=== PATIENT | female | born 1950 | race Caucasian/White ===

== ENCOUNTER 2020-12-26 10:18 | Outpatient (REF) | payer MEDICARE, SELFPAY ==
[2020-12-26 10:21] LABS: MANUAL DIFF FLAG NO
[2020-12-26 10:53] LABS: Basophils Absolute Auto 0.1 X10*3/uL (0.0-0.2); Basophils Percent Auto 1.4 % (0-2); Eosinophils Absolute Auto 0.3 X10*3/uL (0.0-0.4); Eosinophils Percent Auto 3.6 % (0-4); Hemoglobin 13.9 g/dl (12.0-16.0); Imm Gran Abs Auto 0.02 X10*3/uL (0.00-0.03); Imm Gran Pct Auto 0.3 % (0.0-0.4); Lymphocytes Absolute Auto 2.4 X10*3/uL (1.2-4.9); Lymphocytes Percent Auto 31.2 % (20-40); Mean Corpuscular HGB Conc 31.6 g/dl (31.0-35.0); Mean Corpuscular Hemoglobin 31.4 pg (27.0-33.0); Mean Corpuscular Volume 99.5 fL (80-98); Mean Platelet Volume 10.9 fL (9.4-12.3); Monocytes Absolute Auto 0.7 X10*3/uL (0.1-1.2); Monocytes Percent Auto 9.3 % (2-11); Neutrophils Absolute Auto 4.2 X10*3/uL (2.0-8.3); Neutrophils Percent Auto 54.2 % (45-73); Platelet Count 344 X10*3/uL (160-400); Red Blood Count 4.42 X10*6/uL (4.20-5.50); Red Cell Distribution Width 12.7 % (11.0-16.0); White Blood Count 7.7 X10*3/uL (4.8-10.8)
[2020-12-26 11:02] LABS: Glucose Urine UA NEG (NEG); Leukocyte Esterase Urine NEG (NEG); Nitrite Urine NEG (NEG); PH 5.5 (5.0-8.0); Specific Gravity - Urine 1.025 (1.005-1.025); Urine Blood NEG (NEG); Urine Ketones NEG (NEG); Urine Protein NEG (NEG-TRACE)
[2020-12-26 11:04] LABS: Appearance Urine HAZY; Color Urine YELLOW
[2020-12-26 11:30] LABS: Alanine Aminotransferase 21 U/L (0-31); Albumin Level 4.1 g/dL (3.5-5.0); Alkaline Phosphatase 89 U/L (39-117); Anion Gap 14 (12-20); Aspartate Amino Transferase 21 U/L (5-31); Bilirubin Total 0.6 mg/dL (0.0-1.0); Blood Urea Nitrogen 27 mg/dL (9-16); Calcium 9.1 mg/dL (8.4-10.2); Carbon Dioxide 23 mmol/L (22-29); Chloride 111 mmol/L (96-108); Cholesterol 202 mg/dL; Estimated Glomerular Filt Rate 59; Glucose Fasting 113 mg/dL (60-99); HDL Cholesterol 55 mg/dL; LDL Cholesterol Calculated 123 mg/dl; Potassium 4.1 mmol/L (3.3-5.1); Sodium 144 mmol/L (135-145); Triglycerides 123 mg/dL
[2020-12-26 11:57] LABS: TSH reflex Free T4 1.57 uIU/mL (0.32-4.0); Vitamin D 25-OH Total 30.8 ng/mL (>30)
== END 2020-12-26 10:19 | disposition home or self-care (01) ==
LOC: HO.LNP 10:18
PROVIDERS: Visit Provider Internal Medicine
DX: Z00.00 Encounter for general adult medical examination without abnormal findings (principal); E04.1 Nontoxic single thyroid nodule; E55.9 Vitamin D deficiency, unspecified; M81.0 Age-related osteoporosis without current pathological fracture; E78.00 Pure hypercholesterolemia, unspecified
CPT/HCPCS: 80053; 80061; 81003; 82306; 84443; 85025

== ENCOUNTER 2021-03-12 10:31 | Outpatient (REF) | payer MEDICARE, SELFPAY ==
[2021-03-12 11:26] LABS: Blood Urea Nitrogen 25 mg/dL (9-16); Estimated Glomerular Filt Rate > 60
== END 2021-03-12 10:32 | disposition home or self-care (01) ==
LOC: HO.LNP 10:31
PROVIDERS: Visit Provider Internal Medicine
DX: R79.9 Abnormal finding of blood chemistry, unspecified (principal)
CPT/HCPCS: 82565; 84520

== ENCOUNTER 2021-05-07 10:11 | Outpatient (REF) | payer MEDICARE, SELFPAY ==
[2021-05-07 10:16] LABS: MANUAL DIFF FLAG NO
[2021-05-07 10:54] LABS: Basophils Absolute Auto 0.1 X10*3/uL (0.0-0.2); Basophils Percent Auto 1.2 % (0-2); Eosinophils Absolute Auto 0.3 X10*3/uL (0.0-0.4); Eosinophils Percent Auto 2.9 % (0-4); Hematocrit 44.3 % (37.0-47.0); Imm Gran Abs Auto 0.03 X10*3/uL (0.00-0.03); Imm Gran Pct Auto 0.3 % (0.0-0.4); Lymphocytes Absolute Auto 2.4 X10*3/uL (1.2-4.9); Lymphocytes Percent Auto 26.9 % (20-40); Mean Corpuscular HGB Conc 31.6 g/dl (31.0-35.0); Mean Corpuscular Hemoglobin 31.3 pg (27.0-33.0); Mean Corpuscular Volume 98.9 fL (80.0-98.0); Mean Platelet Volume 10.3 fL (9.4-12.3); Monocytes Absolute Auto 0.8 X10*3/uL (0.1-1.2); Monocytes Percent Auto 9.2 % (2-11); Neutrophils Absolute Auto 5.3 x10*3/uL (2.0-8.3); Neutrophils Percent Auto 59.5 % (45-73); Platelet Count 368 X10*3/uL (160-400); Red Blood Count 4.48 X10*6/uL (4.20-5.50); Red Cell Distribution Width 12.7 % (11.0-16.0); White Blood Count 8.9 X10*3/uL (4.8-10.8)
[2021-05-07 10:58] LABS: Appearance Urine CLEAR; Color Urine YELLOW; Glucose Urine UA NEG (NEG); Leukocyte Esterase Urine NEG (NEG); Nitrite Urine NEG (NEG); PH 5.5 (5.0-8.0); Specific Gravity - Urine >= 1.030 (1.005-1.025); Urine Blood NEG (NEG); Urine Ketones NEG (NEG); Urine Protein NEG (NEG-TRACE)
[2021-05-07 11:15] LABS: Alanine Aminotransferase 13 U/L (0-31); Alkaline Phosphatase 86 U/L (39-117); Anion Gap 14 (12-20); Aspartate Amino Transferase 13 U/L (5-31); Bilirubin Total 0.4 mg/dL (0.0-1.0); Blood Urea Nitrogen 16 mg/dL (9-16); Calcium 9.5 mg/dL (8.4-10.2); Carbon Dioxide 27 mmol/L (22-29); Chloride 108 mmol/L (96-108); Cholesterol 218 mg/dL; Estimated Glomerular Filt Rate > 60; Glucose Fasting 117 mg/dL (60-99); HDL Cholesterol 59 mg/dL; LDL Cholesterol Calculated 123 mg/dl; Sodium 145 mmol/L (135-145); Total Protein 6.9 g/dL (6.5-8.0); Triglycerides 184 mg/dL
[2021-05-07 11:24] LABS: TSH reflex Free T4 1.84 uIU/mL (0.32-4.0); Vitamin D 25-OH Total 20.6 ng/mL (>30)
== END 2021-05-07 10:12 | disposition home or self-care (01) ==
LOC: HO.LNP 10:11
PROVIDERS: Visit Provider Internal Medicine
DX: E04.1 Nontoxic single thyroid nodule (principal); E78.00 Pure hypercholesterolemia, unspecified; E55.9 Vitamin D deficiency, unspecified
CPT/HCPCS: 80053; 80061; 81003; 82306; 84443; 85025

== ENCOUNTER 2021-07-06 15:47 | Outpatient (REF) | payer MEDICARE, SELFPAY ==
--- NOTE | ~2021-07-06 | US_ITS ---
EXAMINATION: US THYROID CLINICAL INFORMATION: Thyroid nodule. COMPARISON: Ultrasound soft tissue head/neck thyroid dated 12/09/2019. TECHNIQUE: Linear transducer grayscale and color Doppler examination with attention to the region of the thyroid. FINDINGS: SIZE: Measurements of the thyroid lobes and nodules are given in sagittal, anteroposterior and transverse dimensions respectively. Right Thyroid Lobe: 5.3 x 2.0 x 2.0 cm, volume 11.1 mL. Previously 4.3 x 1.9 x 1.9 cm, volume 8.1 mL. Parenchyma: The gland echotexture is heterogeneous. Thyroid vascularity is normal. Left Thyroid Lobe: 5.2 x 1.7 x 2.0 cm, volume 9.3 mL. Previously 4.9 x 1.7 x 1.9 cm, volume 8.2 mL. Parenchyma: The gland echotexture is heterogeneous. Thyroid vascularity is normal. Isthmus: 0.5 cm in maximum AP dimension. Previously 0.4 cm. Estimated total number of nodules greater than or equal to 1 cm: 2. Cans [employer] nodules are described as follows: 1. Location: Right mid. Size: 1.4 x 1.4 x 1.6 cm, volume 1.6 mL. Previously: 1.4 x 1.0 x 1.1 cm, volume 0.8 mL. Nodule characteristics: Composition: Solid (2). Echogenicity: Isoechoic (1). Shape: Not taller than wide (0). Margins: Ill-defined (0). Echogenic Foci: None (0). ACR TI-RADS total points: 3 ACR TI-RADS category: 3 Significant change in size (>/= 20% in 2 dimensions and minimal increase of 2 mm or 50% or greater increase in volume): Change in features: Change in ACR TI-RADS risk category: 2. Location: Left superior. Size: 0.5 x 0.4 x 0.5 cm, volume 0.05 mL. Previously: Not seen on the prior study. Nodule characteristics: Composition: Cystic(0). ACR TI-RADS total points: 0 ACR TI-RADS category: 1 3. Location: Left mid. Size: 0.6 x 0.4 x 0.4 cm, volume 0.05 mL. Previously: 0.5 x 0.3 x 0.4 cm, volume 0.03 mL. Nodule characteristics: Composition: Spongiform (0). Echogenicity: Anechoic (0). Shape: Not taller than wide (0). Margins: Smooth (0). Echogenic Foci: None (0). ACR TI-RADS total points: 0 ACR TI-RADS category: 1 Significant change in size (>/= 20% in 2 dimensions and minimal increase of 2 mm or 50% or greater increase in volume): Change in features: Change in ACR TI-RADS risk category: 4. Location: Left mid. Size: 1.2 x 0.9 x 1.1 cm, volume 0.7 mL. Previously: 0.7 x 0.7 x 0.6 cm, volume 0.2 mL. Nodule characteristics: Composition: Solid (2). Echogenicity: Isoechoic (1). Shape: Not taller than wide (0). Margins: Smooth (0). Echogenic Foci: None (0). ACR TI-RADS total points: 3 ACR TI-RADS category: 3 Significant change in size (>/= 20% in 2 dimensions and minimal increase of 2 mm or 50% or greater increase in volume): Difference in measurement may be due to differences in interobserver variation of nodule margins. Change in features: Change in ACR TI-RADS risk category: NODES: No lymphadenopathy is seen in the tissue surrounding the thyroid gland. US/US thyroid IMPRESSION: Slightly enlarged heterogeneous thyroid gland. Newly appreciated small left thyroid nodule. Question increase in size in the dominant nodule in the mid left lobe. Difference in measurement may be due to differences in interobserver variation of nodule margins. ACR TI-RADS RECOMMENDATION REFERENCE: Ultrasound-guided fine-needle aspiration, followup ultrasound, no further follow up. * TR1 (0 point) and TR 2 (2 points): No FNA or follow up * TR3 (3 points): FNA if more than or equal to 2.5 cm in maximum dimension, followup ultrasound in 1, 3 and 5 years if 1.5 to 2.4 cm in maximum dimension. * TR4 (4-6 points): FNA if more than or equal to 1.5 cm in maximum dimension, followup ultrasound in 1, 2, 3 and 5 years if 1 to 1.4 cm in maximum dimension. * TR5 (more than or equal to 7 points): FNA if more than or equal to 1 cm in maximum dimension, followup ultrasound every year for 5 years if 0.5 to 0.9 cm in maximum dimension. * TR3, TR4 or TR5 nodules that are below the size threshold for follow up receive no follow up.
== END 2021-07-06 15:48 | disposition home or self-care (01) ==
LOC: HO.US 15:47
PROVIDERS: PCP Internal Medicine; Visit Provider Internal Medicine
DX: E04.0 Nontoxic diffuse goiter (principal)
CPT/HCPCS: 76536

== ENCOUNTER 2022-03-01 16:33 | Emergency (ER) | payer OTHER, MEDICARE, SELFPAY ==
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
[2022-03-01 16:40] VITALS: BP 166/99; BP 172/82; PULSE 106; PULSE 114; RESP 18; TEMP 36.7; O2SAT 95; O2SAT 98; BMI 43.4
[2022-03-01 16:44] VITALS: BP 166/99; PULSE 105; RESP 19; O2SAT 95
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
--- NOTE | 2022-03-01 16:47 | ECG_ITS ---
Test Reason : CP Blood Pressure : / mmHG Vent. Rate : 101 BPM Atrial Rate : 101 BPM P-R Int : 170 ms QRS Dur : 090 ms QT Int : 334 ms P-R-T Axes : 039 -11 000 degrees QTc Int : 433 ms Sinus tachycardia Minimal voltage criteria for LVH, may be normal variant ( R in aVL ) Intra-ventricular conduction delay Left axis deviation Abnormal ECG When compared with ECG of 19-APR-2019 19:03, No significant changes seen Referred By: Kandice Stock Electronically Signed By:CONCETTA MEADE MD
[2022-03-01] MEDS: Acetaminophen 325 MG TABLET 975 MG PO (16:57)
--- OUTSIDE RECORDS SUMMARY | 2022-03-01 18:50 | XMS_ITS | Continuity of Care Document ---
:1950 Author Organization [facility] [place] Address [address] [facility], [address] [address]- Care Team Providers Name Role Phone Breana Krishnamurthy NP Primary Care Physician Encounter 01/20/20 - 01/27/20 [facility] [address], [address] [place] [id number]- [facility] Attending Physician: Breana Krishnamurthy NP Admitting Physician: Breana Krishnamurthy NP Referring Physician: Breana Krishnamurthy NP
--- OUTSIDE RECORDS SUMMARY | 2022-03-01 18:50 | XMS_ITS | Continuity of Care Document ---
:1950 Author Organization [facility] [place] Address [address] [place] [address], [address] [address]- Care Team Providers Name Role Phone Yessy BAE, Breana Castellanos Primary Care Physician Encounter 05/24/21 - 05/31/21 [facility] [address], [address] [address]- Attending Physician: Iron Slater MD Admitting Physician: Iron Slatre MD Referring Physician: Iron Slater MD
[2022-03-01 19:51] VITALS: BP 152/76; PULSE 85; RESP 18; TEMP 36.4; O2SAT 96
[2022-03-01 19:58] LABS: MANUAL DIFF FLAG NO
[2022-03-01 20:00] LABS: Basophils Absolute Auto 0.1 X10*3/uL (0.0-0.2); Eosinophils Absolute Auto 0.2 X10*3/uL (0.0-0.4); Eosinophils Percent Auto 1.8 % (0-4); Hematocrit 42.4 % (37.0-47.0); Hemoglobin 13.8 g/dl (12.0-16.0); Imm Gran Abs Auto 0.04 X10*3/uL (0.00-0.03); Imm Gran Pct Auto 0.4 % (0.0-0.4); Lymphocytes Absolute Auto 2.3 X10*3/uL (1.2-4.9); Lymphocytes Percent Auto 21.1 % (20-40); Mean Corpuscular HGB Conc 32.5 g/dl (31.0-35.0); Mean Corpuscular Hemoglobin 31.5 pg (27.0-33.0); Mean Corpuscular Volume 96.8 fL (80.0-98.0); Mean Platelet Volume 9.7 fL (9.4-12.3); Monocytes Absolute Auto 0.9 X10*3/uL (0.1-1.2); Monocytes Percent Auto 8.2 % (2-11); Neutrophils Absolute Auto 7.4 x10*3/uL (2.0-8.3); Neutrophils Percent Auto 67.5 % (45-73); Platelet Count 352 X10*3/uL (160-400); Red Blood Count 4.38 X10*6/uL (4.20-5.50); Red Cell Distribution Width 12.7 % (11.0-16.0)
[2022-03-01 20:05] LABS: INTERNATIONAL NORM RATIO 0.9 (0.9-1.1); Prothrombin Time 10.6 SEC (10.0-13.1)
[2022-03-01 20:07] LABS: Partial Thromboplastin Time 30.1 SEC (26.0-36.4)
[2022-03-01 20:17] LABS: Anion Gap 17 (12-20); Blood Urea Nitrogen 18 mg/dL (9-16); Calcium 9.4 mg/dL (8.4-10.2); Carbon Dioxide 25 mmol/L (22-29); Chloride 106 mmol/L (96-108); Creatinine Clr Calc Pharmacy 75.2; Estimated Glomerular Filt Rate > 60; Glucose Random 105 mg/dL (60-115); Potassium 4.7 mmol/L (3.3-5.1); Sodium 143 mmol/L (135-145)
[2022-03-01 20:49] LABS: COVID-19 Test Negative (Negative)
[2022-03-01] MEDS: iohexoL 350 MG/ML 100 ML INFUS..BTL IV (20:50)
[2022-03-01 22:20] VITALS: BP 148/81; PULSE 85; RESP 18; TEMP 36.7; O2SAT 95
== END 2022-03-01 23:46 | disposition home or self-care (01) ==
PROVIDERS: Physician Assistant; Emergency Provider Emergency Medicine; PCP Internal Medicine
DX: M94.0 Chondrocostal junction syndrome [Tietze] (principal); R51.9 Headache, unspecified; M54.6 Pain in thoracic spine; M54.2 Cervicalgia; R10.9 Unspecified abdominal pain; Z20.822 Contact with and (suspected) exposure to COVID-19; Z79.899 Other long term (current) drug therapy
CPT/HCPCS: 36415; 70450; 71120; 71260; 72125; 74177; 80048; 85025; 85610; 85730; 87635; 93005; 99284; Q9967

== ENCOUNTER 2022-04-02 15:17 | Outpatient (REF) | payer MEDICARE, SELFPAY ==
--- NOTE | ~2022-04-02 | US_ITS ---
EXAMINATION: US THYROID CLINICAL INFORMATION: Thyroid nodule. COMPARISON: None. TECHNIQUE: Linear transducer grayscale and color Doppler examination with attention to the region of the thyroid. Technically difficult study secondary to body habitus and low-lying thyroid. FINDINGS: SIZE: Measurements of the thyroid lobes and nodules are given in sagittal, anteroposterior and transverse dimensions respectively. Right Thyroid Lobe: 5.3 x 2.1 x 2.0 cm, volume 11.6 mL. Previously 5.3 x 2.0 x 2.0 cm, volume 11.1 mL. Parenchyma: The gland echotexture is heterogeneous. Thyroid vascularity is normal. Left Thyroid Lobe: 4.3 x 1.6 x 1.6 cm, volume 5.8 mL. Previously 5.2 x 1.7 x 2.0 cm, volume 9.3 mL. Parenchyma: The gland echotexture is heterogeneous. Thyroid vascularity is normal. Isthmus: 0.64 cm in maximum AP dimension. Previously 0.50 cm. Estimated total number of nodules greater than or equal to 1 cm: 2. Prick Stitcher nodules are described as follows: 1. Location: Right inferior. Size: 1.4 x 1.9 x 1.8 cm, volume 2.4 mL. Previously: 1.4 x 1.0 x 1.1 cm, volume 0.80 mL. Nodule characteristics: Composition: Solid/almost completely solid (2). Echogenicity: Hypoechoic (2). Shape: Taller than wide (3). Margins: Smooth (0). Echogenic Foci: None (0). ACR TI-RADS total points: 7 Previous: 3 ACR TI-RADS category: 5 Previous: 3 Significant change in size (>/= 20% in 2 dimensions and minimal increase of 2 mm or 50% or greater increase in volume): Yes Change in features: Yes Change in ACR TI-RADS risk category: Yes 2. Location: Right mid. Size: 0.70 x 0.38 x 0.47 cm, volume 0.06 mL. Previously: Not seen on the previous study. Nodule characteristics: Composition: Spongiform (0). Echogenicity: Anechoic (0). Shape: Not taller than wide (0). Margins: Smooth (0). Echogenic Foci: None (0). ACR TI-RADS total points: 0 ACR TI-RADS category: 1 3. Location: Left superior. Size: 0.54 x 0.29 x 0.48 cm, volume 0.04 mL. Previously: 0.50 x 0.40 x 0.50 cm, volume 0.05 mL. Nodule characteristics: Composition: Spongiform (0). Echogenicity: Anechoic (0). Shape: Not taller than wide (0). Margins: Smooth (0). Echogenic Foci: None (0). ACR TI-RADS total points: 0 Previous: 0 ACR TI-RADS category: 1 Previous: 1 Significant change in size (>/= 20% in 2 dimensions and minimal increase of 2 mm or 50% or greater increase in volume): No Change in features: No Change in ACR TI-RADS risk category: No 4. Location: Left mid. Size: 0.63 x 0.44 x 0.71 cm, volume 0.10 mL. Previously: 0.60 x 0.40 x 0.40 cm, volume 0.05 mL. Nodule characteristics: Composition: Spongiform (0). Echogenicity: Anechoic (0). Shape: Not taller than wide (0). Margins: Smooth (0). Echogenic Foci: None (0). ACR TI-RADS total points: 0 Previous: 0 ACR TI-RADS category: 1 Previous: 1 Significant change in size (>/= 20% in 2 dimensions and minimal increase of 2 mm or 50% or greater increase in volume): Yes Change in features: No Change in ACR TI-RADS risk category: No 5. Location: Left inferior. Size: 1.8 x 1.5 x 1.7 cm, volume 2.3 mL. Previously: 1.2 x 0.90 x 1.1 cm, volume 0.70 mL. Nodule characteristics: Composition: Solid/almost completely solid (2). Echogenicity: Hypoechoic (2). Shape: Not taller than wide (0). Margins: Smooth (0). Echogenic Foci: None (0). ACR TI-RADS total points: 4 Previous: 3 ACR TI-RADS category: 4 Previous: 3 Significant change in size (>/= 20% in 2 dimensions and minimal increase of 2 mm or 50% or greater increase in volume): Yes Change in features: Yes Change in ACR TI-RADS risk category: Yes NODES: No lymphadenopathy is seen in the tissue surrounding the thyroid gland. US/US thyroid IMPRESSION: 1. A 1.9 cm in maximal diameter right thyroid lobe nodule and a 1.8 cm in maximal diameter left thyroid lobe nodule both meet ACR biopsy criteria and are amenable to ultrasound-guided biopsy, if clinically indicated and not already performed. 2. There is an asymmetric goiter, right lobe greater than left. 3. There is heterogeneous thyroid echotexture, which can be associated with thyroiditis. ACR TI-RADS RECOMMENDATION REFERENCE: Ultrasound-guided fine-needle aspiration, followup ultrasound, no further follow up. * TR1 (0 point) and TR 2 (2 points): No FNA or follow up * TR3 (3 points): FNA if more than or equal to 2.5 cm in maximum dimension, followup ultrasound in 1, 3 and 5 years if 1.5 to 2.4 cm in maximum dimension. * TR4 (4-6 points): FNA if more than or equal to 1.5 cm in maximum dimension, followup ultrasound in 1, 2, 3 and 5 years if 1 to 1.4 cm in maximum dimension. * TR5 (more than or equal to 7 points): FNA if more than or equal to 1 cm in maximum dimension, followup ultrasound every year for 5 years if 0.5 to 0.9 cm in maximum dimension. * TR3, TR4 or TR5 nodules that are below the size threshold for follow up receive no follow up.
== END 2022-04-02 15:18 | disposition home or self-care (01) ==
LOC: HO.HMGCX 15:17
PROVIDERS: PCP Internal Medicine; Visit Provider Internal Medicine
DX: E04.1 Nontoxic single thyroid nodule (principal)
CPT/HCPCS: 76536

== ENCOUNTER 2022-05-09 10:57 | Outpatient (REF) | payer MEDICARE, SELFPAY ==
[2022-05-09 11:02] LABS: MANUAL DIFF FLAG NO
[2022-05-09 11:55] LABS: Basophils Absolute Auto 0.1 X10*3/uL (0.0-0.2); Basophils Percent Auto 1.1 % (0-2); Eosinophils Absolute Auto 0.2 X10*3/uL (0.0-0.4); Eosinophils Percent Auto 2.7 % (0-4); Hematocrit 44.4 % (37.0-47.0); Hemoglobin 14.3 g/dl (12.0-16.0); Imm Gran Abs Auto 0.03 X10*3/uL (0.00-0.03); Imm Gran Pct Auto 0.4 % (0.0-0.4); Lymphocytes Absolute Auto 2.3 X10*3/uL (1.2-4.9); Lymphocytes Percent Auto 27.2 % (20-40); Mean Corpuscular HGB Conc 32.2 g/dl (31.0-35.0); Mean Corpuscular Hemoglobin 31.8 pg (27.0-33.0); Mean Corpuscular Volume 98.7 fL (80.0-98.0); Mean Platelet Volume 10.2 fL (9.4-12.3); Monocytes Absolute Auto 0.7 X10*3/uL (0.1-1.2); Monocytes Percent Auto 8.8 % (2-11); Neutrophils Percent Auto 59.8 % (45-73); Platelet Count 347 X10*3/uL (160-400); Red Cell Distribution Width 12.4 % (11.0-16.0); White Blood Count 8.4 X10*3/uL (4.8-10.8)
[2022-05-09 11:57] LABS: Appearance Urine Clear; Color Urine Yellow; Glucose Urine UA Negative (Negative); Leukocyte Esterase Urine Negative (Negative); Nitrite Urine Negative (Negative); Urine Blood Negative (Negative); Urine Ketones Negative (Negative); Urine Protein Negative (Neg-Trace)
[2022-05-09 12:04] LABS: Bacteria Urine None Seen (None Seen); WBC Urine 0-5 /HPF (0-5)
[2022-05-09 13:55] LABS: Alanine Aminotransferase 11 U/L (0-31); Albumin Level 3.9 g/dL (3.5-5.0); Alkaline Phosphatase 82 U/L (39-117); Anion Gap 12 (12-20); Aspartate Amino Transferase 13 U/L (5-31); Bilirubin Total 0.8 mg/dL (0.0-1.0); Blood Urea Nitrogen 18 mg/dL (9-16); Calcium 9.3 mg/dL (8.4-10.2); Carbon Dioxide 27 mmol/L (22-29); Chloride 108 mmol/L (96-108); Cholesterol 225 mg/dL; Estimated Glomerular Filt Rate > 60; Glucose Fasting 111 mg/dL (60-99); HDL Cholesterol 65 mg/dL; LDL Cholesterol Calculated 133 mg/dl; Potassium 4.3 mmol/L (3.3-5.1); Sodium 143 mmol/L (135-145); TSH reflex Free T4 1.89 uIU/mL (0.32-4.0); Total Protein 6.5 g/dL (6.5-8.0); Triglycerides 136 mg/dL; Vitamin D 25-OH Total 19.6 ng/mL (>30)
== END 2022-05-09 10:58 | disposition home or self-care (01) ==
LOC: HO.LNP 10:57
PROVIDERS: Visit Provider Internal Medicine
DX: Z00.00 Encounter for general adult medical examination without abnormal findings (principal); E55.9 Vitamin D deficiency, unspecified; E78.00 Pure hypercholesterolemia, unspecified; E04.1 Nontoxic single thyroid nodule
CPT/HCPCS: 80053; 80061; 81001; 82306; 84443; 85025

== ENCOUNTER → 2022-05-29 09:20 | Outpatient (BNVA) | payer MEDICARE, SELFPAY | PROVIDERS: PCP Internal Medicine; Visit Provider Internal Medicine | DX: M81.0 Age-related osteoporosis without current pathological fracture (principal); E04.2 Nontoxic multinodular goiter; E55.9 Vitamin D deficiency, unspecified | CPT/HCPCS: 99212 ==

== ENCOUNTER 2022-05-29 10:43 | Outpatient (REF) | payer MEDICARE, SELFPAY ==
[2022-05-29 14:41] LABS: Alanine Aminotransferase 12 U/L (0-31); Albumin Level 3.9 g/dL (3.5-5.0); Alkaline Phosphatase 91 U/L (39-117); Anion Gap 10 (12-20); Aspartate Amino Transferase 12 U/L (5-31); Bilirubin Total 0.6 mg/dL (0.0-1.0); Blood Urea Nitrogen 15 mg/dL (9-16); Calcium 9.6 mg/dL (8.4-10.2); Carbon Dioxide 30 mmol/L (22-29); Chloride 107 mmol/L (96-108); Estimated Glomerular Filt Rate > 60; Glucose Random 103 mg/dL (60-115); Phosphorus 3.7 mg/dL (2.7-4.5); Potassium 4.4 mmol/L (3.3-5.1); Sodium 143 mmol/L (135-145); Total Protein 6.7 g/dL (6.5-8.0)
[2022-05-29 15:03] LABS: Free T4 (Free Thyroxine) 0.97 ng/dL (0.71-1.85); Thyroid Stimulating Hormone 1.18 uIU/mL (0.32-4.0); Vitamin D 25-OH Total 16.5 ng/mL (>30)
[2022-05-30 14:13] LABS: PTHI 30 pg/mL (16-77)
[2022-05-30 23:05] LABS: Prot Elec - Albumin 3.9 g/dL (3.8-4.8); Prot Elec - Alpha1 0.3 g/dL (0.2-0.3); Prot Elec - Alpha2 0.8 g/dL (0.5-0.9); Prot Elec - Beta 1 0.5 g/dL (0.4-0.6); Prot Elec - Beta 2 0.6 g/dL (0.2-0.5); Prot Elec - Gamma 0.9 g/dL (0.8-1.7); Prot Elec - Total Protein 6.8 g/dL (6.1-8.1)
== END 2022-05-29 10:44 | disposition home or self-care (01) ==
LOC: HO.10HDL 10:43
PROVIDERS: Visit Provider Internal Medicine
DX: M81.0 Age-related osteoporosis without current pathological fracture (principal); E04.2 Nontoxic multinodular goiter; E55.9 Vitamin D deficiency, unspecified
CPT/HCPCS: 36415; 80053; 82306; 83970; 84100; 84165; 84439; 84443

== ENCOUNTER 2022-06-03 15:48 | Outpatient (REF) | payer MEDICARE, SELFPAY ==
[2022-06-09 17:39] LABS: N-Telopeptide 80 (see note); NTXCreaRU 86 mg/dL (20-275)
== END 2022-06-03 15:49 | disposition home or self-care (01) ==
LOC: HO.LNP 15:48
PROVIDERS: Visit Provider Internal Medicine
DX: M81.0 Age-related osteoporosis without current pathological fracture (principal)
CPT/HCPCS: 82523

== ENCOUNTER 2022-06-11 10:54 | Outpatient (REF) | payer MEDICARE, SELFPAY ==
[2022-06-11 11:13] LABS: Appearance Urine Clear; Color Urine Yellow; Glucose Urine UA Negative (Negative); Leukocyte Esterase Urine Negative (Negative); Nitrite Urine Negative (Negative); Urine Blood Negative (Negative); Urine Ketones Negative (Negative); Urine Protein Negative (Neg-Trace)
[2022-06-11 11:19] LABS: Bacteria Urine None Seen (None Seen); Hyaline Casts Urine 0-2 /LPF (0-2); RBC Urine 0-2 /HPF (0-2); WBC Urine 0-5 /HPF (0-5)
== END 2022-06-11 10:55 | disposition home or self-care (01) ==
LOC: HO.LNP 10:54
PROVIDERS: Visit Provider Internal Medicine
DX: R31.9 Hematuria, unspecified (principal)
CPT/HCPCS: 81001

== ENCOUNTER 2022-07-02 15:08 | Outpatient (REF) | payer MEDICARE, SELFPAY ==
--- NOTE | ~2022-07-02 | MM_ITS ---
EXAMINATION: BONE DENSITOMETRY CLINICAL INDICATION: Age-related osteoporosis without current pathological fracture. COMPARISON: Previous BD dated 11/05/2018 and baseline BD dated 05/04/2013 for the spine and left hip; this is the baseline for the right forearm radius 33%. TECHNIQUE: Using a [employer] DXA System (software version: 13.1) manufactured by [employer], dual-energy x-ray absorptiometry was performed of the lumbar spine and left hip and right forearm radius 33%. The images are of good technical quality. Summary results are attached. FINDINGS: AP SPINE L1-L4: Current: BMD 1.068 g/cm2, Z-score -0.4, T-score -0.9, normal, 5.2% decrease from previous, 1.5% increase from baseline (<5% change is not significant). Prior: BMD 1.127 g/cm2. Baseline: BMD 1.052 g/cm2. LEFT FEMUR, NECK: Current: BMD 0.656 g/cm2, Z-score -1.7, T-score -2.7, osteoporosis. Prior: BMD 0.639 g/cm2. Baseline: BMD 0.711 g/cm2. LEFT FEMUR, TOTAL: Current: BMD 0.796 g/cm2, Z-score -0.9, T-score -1.7, osteopenia, 1.2% decrease from previous, 7.8% decrease from baseline (<5% change is not significant). Prior: BMD 0.806 g/cm2. Baseline: BMD 0.863 g/cm2. RIGHT FOREARM RADIUS 33%: BMD 0.658 g/cm2, Z-score -0.4, T-score -2.5, osteoporosis. IDENTIFIED RISK FACTORS: Early menopause, family history (parent hip fracture), history of fracture (adult), secondary osteoporosis. HISTORY OF FRACTURE: Wrist. MEDICATIONS: Calcium, vitamin D. MM/XR DEXA appendicular skeleton IMPRESSION: 1. DIAGNOSIS: Severe osteoporosis based on the lowest T-score value of -2.7 in the femoral neck, and the history of a wrist fracture, applying World Health Organization criteria. 2. 10-YEAR FRACTURE RISK PREDICTION, FRAX: According to the guidelines, FRAX calculation should only be performed on patients in the osteopenia bone density category. Therefore, FRAX was not performed on this patient. 3. Treatment Recommendations: NOF guidelines recommend consideration for treatment in postmenopausal women and men age 50 and older presenting with the following: -A hip or vertebral (clinical or morphometric) fracture. -T-score less than or equal to -2.5 at the femoral neck or spine after appropriate evaluation to exclude secondary causes. -Low bone mass at the hip or spine and a 10-year fracture probability by FRAX of greater than or equal to 3% for hip fracture or greater than or equal to 20% for major osteoporotic fracture based on the [place] adapted WHO algorithm. 4. Other Recommendations: All treatment decisions require clinical judgment and consideration of individual patient factors, including patient preferences, comorbidities, previous drug use, risk factors not captured in the FRAX model (e.g. frailty, falls, vitamin D deficiency, increased bone turnover, interval significant decline in bone density) and possible under or overestimation of fracture risk by FRAX. Additional medical evaluation for secondary cause of low bone mineral density may be appropriate. FUTURE SCAN RECOMMENDATION: People with diagnosed cases of osteoporosis or at high risk for fracture should have regular bone mineral density tests. For patients eligible for Medicare, routine testing is allowed once every 2 years. The testing frequency can be increased to one year for patients who have rapidly progressing disease, those who are receiving or discontinuing medical therapy to restore bone mass, or have additional risk factors.
== END 2022-07-02 15:09 | disposition home or self-care (01) ==
LOC: HO.MAMMO 15:08
PROVIDERS: PCP Internal Medicine; Visit Provider Internal Medicine
DX: M81.0 Age-related osteoporosis without current pathological fracture (principal)
CPT/HCPCS: 77081

== ENCOUNTER 2022-07-26 11:56 | Outpatient (REF) | payer MEDICARE, SELFPAY ==
[2022-07-26 12:38] LABS: Appearance Urine Clear; Color Urine Yellow; Glucose Urine UA Negative (Negative); Leukocyte Esterase Urine Small (1+) (Negative); Nitrite Urine Negative (Negative); UMIC TRIGGER UACC YES; Urine Blood Negative (Negative); Urine Ketones Negative (Negative); Urine Protein Negative (Neg-Trace)
[2022-07-26 12:47] LABS: Bacteria Urine Trace (None Seen); Hyaline Casts Urine 0-2 /LPF (0-2); UACC Culture Trigger YES
== END 2022-07-26 11:57 | disposition home or self-care (01) ==
LOC: HO.LNP 11:56
PROVIDERS: Visit Provider Internal Medicine
DX: R31.9 Hematuria, unspecified (principal)
CPT/HCPCS: 81001; 87086

== ENCOUNTER 2022-08-01 07:34 | Outpatient (REF) | payer MEDICARE, SELFPAY ==
--- NOTE | 2022-08-01 08:26 | PM.OP ---
Brief Operative Note Date of Service: 08/01/22 Pre-op diagnosis: Multinodular Thyroid Procedure: Ultrasound of the thyroid was performed today. Her RMP nodule is now measuring 1.7 x 1.8 x 1.6 cm. There are no nodules visualized in the left lobe, just a heterogenous lobe with pseudonodules. Her RMP thyroid nodule was previously biopsied in 2019 when measuring 2.1 x 1.8 x 1.4 cm. Repeat FNA biopsy was not indicated today given the nodule has decreased in size, thus no FNA was performed. Surgeon: Debra Amaya, DO Was an Outside Contractor Sales used for this Procedure?: No Estimated blood loss (mL): 0
== END 2022-08-01 07:35 | disposition home or self-care (01) ==
LOC: HO.US 07:34
PROVIDERS: PCP Internal Medicine; Visit Provider Internal Medicine
DX: E04.2 Nontoxic multinodular goiter (principal)
CPT/HCPCS: 76536

== ENCOUNTER → 2022-08-14 10:46 | Outpatient (BNVA) | payer MEDICARE, SELFPAY | PROVIDERS: PCP Internal Medicine; Visit Provider Internal Medicine | DX: M81.0 Age-related osteoporosis without current pathological fracture (principal); E04.2 Nontoxic multinodular goiter; E55.9 Vitamin D deficiency, unspecified | CPT/HCPCS: 99212 ==

== ENCOUNTER 2022-08-14 11:32 | Outpatient (REF) | payer MEDICARE, SELFPAY ==
[2022-08-14 14:46] LABS: Alanine Aminotransferase 13 U/L (0-31); Alkaline Phosphatase 83 U/L (39-117); Anion Gap 14 (12-20); Aspartate Amino Transferase 14 U/L (5-31); Bilirubin Total 0.6 mg/dL (0.0-1.0); Blood Urea Nitrogen 18 mg/dL (9-16); Calcium 9.6 mg/dL (8.4-10.2); Carbon Dioxide 27 mmol/L (22-29); Chloride 108 mmol/L (96-108); Estimated Glomerular Filt Rate > 60; Glucose Random 102 mg/dL (60-115); Phosphorus 3.9 mg/dL (2.7-4.5); Potassium 5.1 mmol/L (3.3-5.1); Sodium 144 mmol/L (135-145); Total Protein 6.8 g/dL (6.5-8.0)
[2022-08-14 14:53] LABS: Vitamin D 25-OH Total 24.3 ng/mL (>30)
[2022-08-16 16:23] LABS: Calcium (PTHI) 9.7 mg/dL (8.6-10.4); PTHI 36 pg/mL (16-77)
== END 2022-08-14 11:33 | disposition home or self-care (01) ==
LOC: HO.10HDL 11:32
PROVIDERS: Visit Provider Internal Medicine
DX: E55.9 Vitamin D deficiency, unspecified (principal); M81.0 Age-related osteoporosis without current pathological fracture
CPT/HCPCS: 36415; 80053; 82306; 83970; 84100

== ENCOUNTER 2022-08-19 10:30 | Outpatient (REF) | payer MEDICARE, SELFPAY ==
[2022-08-25 16:54] LABS: N-Telopeptide 82 (see note); NTXCreaRU 199 mg/dL (20-275)
== END 2022-08-19 10:31 | disposition home or self-care (01) ==
LOC: HO.10HDLNP 10:30
PROVIDERS: Visit Provider Internal Medicine
DX: M81.0 Age-related osteoporosis without current pathological fracture (principal)
CPT/HCPCS: 82523

== ENCOUNTER 2022-08-26 11:00 | Outpatient (REF) | payer MEDICARE, SELFPAY ==
[2022-08-26 11:27] LABS: Appearance Urine Cloudy; Color Urine Yellow; Glucose Urine UA Negative (Negative); Leukocyte Esterase Urine Negative (Negative); Nitrite Urine Negative (Negative); Specific Gravity - Urine 1.025 (1.005-1.025); Urine Blood Negative (Negative); Urine Ketones Negative (Negative); Urine Protein Negative (Neg-Trace)
[2022-08-26 11:34] LABS: Bacteria Urine None Seen (None Seen); Hyaline Casts Urine 0-2 /LPF (0-2); RBC Urine 0-2 /HPF (0-2); WBC Urine 0-5 /HPF (0-5)
== END 2022-08-26 11:01 | disposition home or self-care (01) ==
LOC: HO.LNP 11:00
PROVIDERS: Visit Provider Internal Medicine
DX: R31.9 Hematuria, unspecified (principal)
CPT/HCPCS: 81001

== ENCOUNTER 2022-12-04 09:28 | Outpatient (AMB) | payer MEDICARE, SELFPAY ==
--- NOTE | 2022-12-04 09:28 | MHC.OFFVIS ---
Intake Intake Visit Reasons: F/U Osteoporosis, needs 40 min Allergies STEROIDS Adverse Reaction (Mild, Uncoded 12/04/22 11:49) MOODINESS/AGGRESSION Medication List - Last Reconciled 12/04/22 by Debra Amaya, DO calcium carb and citrate-vitD3 600 mg-12.5 mcg (500 unit) ER (Citracal-D3 Slow Release) 1 tab PO BID 30 days cholecalciferol (vitamin D3) 100 mcg (2 x 50 mcg (2,000 unit)) PO DAILY 30 days HPI HPI Comments History of Present Illness Details 72 YO Female with no significant PMHx is seen in F/U for NTMNG and also Osteoporosis. 1) NTMNG: She has a NTMNG and underwent FNA biopsy of her RMP 1.4 cm nodule 01/13/2020 with Benign (Beatty II) Cytology. Repeat US that I performed myself revealed this nodule had decreased in size and no repeat FNA was indicated. 2) Osteoporosis: First diagnosed in 2018 after her BMD revealed progression from Osteopenia to Osteoporosis. She had a full biochemical workup completed after her initial visit which revealed mild hypercalciuria, and elevated NTX. It was otherwise within normal limits. DEXA consistent with changes that would be expected with hyperparathyroidism. She was undergoing evaluation for this, but then was lost to F/U. After her last visit we repeated her biochemical evaluation. SPEP was abnormal and she was referred to [facility]. She has F/U with them in August after completing confirmatory testing. Vitamin D was very low. She was started on Vitamin D 4000 IU daily and reports good compliance with this. DXA again demonstrated Osteoporosis of the hip and distal forearm. Has never been treated for Osteoporosis in the past. No history of pathologic fracture or ONJ. Has 0-1 servings of dairy per day. Takes Vitamin D 4000 IU daily. Denies prolonged use of PPI, anticoagulant, antiepileptic or glucocorticoid medication. Does no weight bearing exercise. Fracture history: 2018 had fragility fracture of the L wrist. Height loss: Denies. 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 Menses was always irregular, coming only every few months. , did not breastfeed. Menopause was age 41. Did not use HRT. History of Kidney stones: Was recently found to have an obstructing stone with hydronephrosis. This resolved spontaneously and she is unsure what type of stone this was. Family history of Osteoporosis in her Mother and a Hip fracture in her father. Has completed all dental work. US Thyroid: 04/02/2022 Right Thyroid Lobe: 5.3 x 2.1 x 2.0 cm, volume 11.6 mL. Previously 5.3 x 2.0 x 2.0 cm, volume 11.1 mL. Parenchyma: The gland echotexture is heterogeneous. Thyroid vascularity is normal. Left Thyroid Lobe: 4.3 x 1.6 x 1.6 cm, volume 5.8 mL. Previously 5.2 x 1.7 x 2.0 cm, volume 9.3 mL. Parenchyma: The gland echotexture is heterogeneous. Thyroid vascularity is normal. Isthmus: 0.64 cm in maximum AP dimension. Previously 0.50 cm. Estimated total number of nodules greater than or equal to 1 cm: 2. Anesthesia Director nodules are described as follows: 1.? Location: Right inferior. ?? ? Size: 1.4 x 1.9 x 1.8 cm, volume 2.4 mL. ?? ? Previously: 1.4 x 1.0 x 1.1 cm, volume 0.80 mL. ?? ? Nodule characteristics: ?? ? Composition: Solid/almost completely solid (2). ?? ? Echogenicity: Hypoechoic (2). ?? ? Shape: Taller than wide (3). ?? ? Margins: Smooth (0). ?? ? Echogenic Foci: None (0).? ACR TI-RADS total points: 7 Previous: 3 ?? ? ACR TI-RADS category: 5 Previous: 3 ? Significant change in size (>/= 20% in 2 dimensions and minimal increase of 2 mm or 50% or greater increase in volume): Yes ?? ? Change in features: Yes ?? ? Change in ACR TI-RADS risk category: Yes 2.? Location: Right mid. ?? ? Size: 0.70 x 0.38 x 0.47 cm, volume 0.06 mL. ?? ? Previously: Not seen on the previous study. ?? ? Nodule characteristics: ?? ? Composition: Spongiform (0). ?? ? Echogenicity: Anechoic (0). ?? ? Shape: Not taller than wide (0). ?? ? Margins: Smooth (0). ?? ? Echogenic Foci: None (0). ? ACR TI-RADS total points: 0 ?? ? ACR TI-RADS category: 1 ?? ? 3.? Location: Left superior. ?? ? Size: 0.54 x 0.29 x 0.48 cm, volume 0.04 mL. ?? ? Previously: 0.50 x 0.40 x 0.50 cm, volume 0.05 mL. ?? ? Nodule characteristics: ?? ? Composition: Spongiform (0). ?? ? Echogenicity: Anechoic (0). ?? ? Shape: Not taller than wide (0). ?? ? Margins: Smooth (0). ?? ? Echogenic Foci: None (0). ? ACR TI-RADS total points: 0 Previous: 0 ?? ? ACR TI-RADS category: 1 Previous: 1 ? Significant change in size (>/= 20% in 2 dimensions and minimal increase of 2 mm or 50% or greater increase in volume): No ?? ? Change in features: No ?? ? Change in ACR TI-RADS risk category: No 4.? Location: Left mid. ?? ? Size: 0.63 x 0.44 x 0.71 cm, volume 0.10 mL. ?? ? Previously: 0.60 x 0.40 x 0.40 cm, volume 0.05 mL. ?? ? Nodule characteristics: ?? ? Composition: Spongiform (0). ?? ? Echogenicity: Anechoic (0). ?? ? Shape: Not taller than wide (0). ?? ? Margins: Smooth (0). ?? ? Echogenic Foci: None (0). ? ACR TI-RADS total points: 0 Previous: 0 ?? ? ACR TI-RADS category: 1 Previous: 1 ? Significant change in size (>/= 20% in 2 dimensions and minimal increase of 2 mm or 50% or greater increase in volume): Yes ?? ? Change in features: No ?? ? Change in ACR TI-RADS risk category: No 5.? Location: Left inferior. ?? ? Size: 1.8 x 1.5 x 1.7 cm, volume 2.3 mL. ?? ? Previously: 1.2 x 0.90 x 1.1 cm, volume 0.70 mL. ?? ? Nodule characteristics: ?? ? Composition: Solid/almost completely solid (2). ?? ? Echogenicity: Hypoechoic (2). ?? ? Shape: Not taller than wide (0). ?? ? Margins: Smooth (0). ?? ? Echogenic Foci: None (0).? ACR TI-RADS total points: 4 Previous: 3 ?? ? ACR TI-RADS category: 4 Previous: 3 ? Significant change in size (>/= 20% in 2 dimensions and minimal increase of 2 mm or 50% or greater increase in volume): Yes ?? ? Change in features: Yes ?? ? Change in ACR TI-RADS risk category: Yes NODES: No lymphadenopathy is seen in the tissue surrounding the thyroid gland. DXA dated 07/02/2022: FINDINGS: AP SPINE L1-L4: Current: BMD 1.068 g/cm2, Z-score -0.4, T-score -0.9, normal, 5.2% decrease from previous, 1.5% increase from baseline (<5% change is not significant). Prior: BMD 1.127 g/cm2. Baseline: BMD 1.052 g/cm2. LEFT FEMUR, NECK: Current: BMD 0.656 g/cm2, Z-score -1.7, T-score -2.7, osteoporosis. Prior: BMD 0.639 g/cm2. Baseline: BMD 0.711 g/cm2. LEFT FEMUR, TOTAL: Current: BMD 0.796 g/cm2, Z-score -0.9, T-score -1.7, osteopenia, 1.2% decrease from previous, 7.8% decrease from baseline (<5% change is not significant). Prior: BMD 0.806 g/cm2. Baseline: BMD 0.863 g/cm2. RIGHT FOREARM RADIUS 33%: BMD 0.658 g/cm2, Z-score -0.4, T-score -2.5, osteoporosis. Labs: Laboratory Tests 08/14/22 08/14/22 08/19/22 11:36 11:36 08:15 Creatinine 0.78 Estimated GFR > 60 Albumin 4.0 N-Telopeptide X-li nked 82 25-OH Vitamin D To george 24.3 PTH Intact 36 Calcium (PTH Intac t) 9.7 PFSH Medical History Abnormal SPEP Multinodular thyroid Nephrolithiasis Osteoporosis Vitamin D deficiency Surgical History History of surgery on left wrist Hx of dilation and curettage Hx of tonsillectomy Family History Father Heart disease Mother Cancer Osteoporosis Breast cancer Social History Household Members: Family and Children Housing: House Alcohol intake: current Patient Tobacco Use Status: Never used Tobacco service: No Current occupational status: employed Assessment & Plan Assessment & Plan (1) Osteoporosis: Code(s): M81.0 - Age-related osteoporosis without current pathological fracture Plan: Patient with Osteoporosis of the hip with a fragility fracture of the wrist. She also had mildly elevated urinary calcium and kidney stones. Her picture is very consistent with hyperparathyroidism, but her labs are not consistent currently. Vitamin D was very low. She is now on Vitamin D 4000 IU daily. Will repeat levels now and reassess. When Vitamin D >30 we will repeat her 24 hour urine collection. She did not repeat labs prior to today's visit. DXA revealed Osteoporosis vs osteomalaica of the hip and the distal forearm. Plan is to replete Vitamin D and reassess, then discuss treatment options. I have also asked her to start Calcium 1 tab PO BID. We have reviewed fall prevention/precaution. All of her questions were answered today. She is in agreement with this plan of care. I spent 20 minutes in reviewing the record, seeing the patient and documenting in the medical record, including 5 minutes on the phone with the Patient. (2) Multinodular thyroid: Code(s): E04.2 - Nontoxic multinodular goiter Plan: Patient with a multinodular thyroid. I repeated her thyroid US myself and no nodules meeting indication for repeat biopsy at this time. Will continue to monitor We did review that all nodules carry a risk of thyroid cancer. We reviewed that she will require a yearly surveillance US of her thyroid even if these nodules are benign. We reviewed the importance of regular F/U. She verbalizes understanding. (3) Vitamin D deficiency: Code(s): E55.9 - Vitamin D deficiency, unspecified Plan: Will repeat levels now and adjust as indicated. Telehealth Telehealth Location of provider rendering services: practice address Location of patient: address on file Patient Identification confirmed using: Name, : Yes Telehealth method: voice only Patient verbally consented to treatment: Yes Patient verbally consented to billing insurance company: Yes Patient informed of any privacy concerns related to visit: Yes Coding Level of Care Code Tele Est Pt Level 3 (34514) Diagnoses Osteoporosis M81.0 Multinodular thyroid E04.2 Vitamin D deficiency E55.9
== END 2022-12-04 12:38 | disposition home or self-care (01) ==
LOC: HO.ENCR 09:28
PROVIDERS: PCP Internal Medicine; Visit Provider Internal Medicine
DX: M81.0 Age-related osteoporosis without current pathological fracture (principal); E04.2 Nontoxic multinodular goiter; E55.9 Vitamin D deficiency, unspecified
CPT/HCPCS: 99443

== ENCOUNTER → 2022-12-04 09:28 | Outpatient (BNVA) | payer MEDICARE, SELFPAY | PROVIDERS: PCP Internal Medicine; Visit Provider Internal Medicine ==

== ENCOUNTER 2023-05-20 11:31 | Outpatient (REF) | payer MEDICARE, SELFPAY ==
[2023-05-20 11:35] LABS: MANUAL DIFF FLAG NO
[2023-05-20 11:59] LABS: Basophils Absolute Auto 0.1 X10*3/uL (0.0-0.2); Basophils Percent Auto 1.4 % (0-2); Eosinophils Absolute Auto 0.3 X10*3/uL (0.0-0.4); Eosinophils Percent Auto 3.8 % (0-4); Hematocrit 40.7 % (37.0-47.0); Hemoglobin 13.2 g/dl (12.0-16.0); Imm Gran Abs Auto 0.03 X10*3/uL (0.00-0.03); Imm Gran Pct Auto 0.4 % (0.0-0.4); Lymphocytes Absolute Auto 2.2 X10*3/uL (1.2-4.9); Lymphocytes Percent Auto 29.8 % (20-40); Mean Corpuscular HGB Conc 32.4 g/dl (31.0-35.0); Mean Corpuscular Hemoglobin 32.4 pg (27.0-33.0); Mean Corpuscular Volume 99.8 fL (80.0-98.0); Mean Platelet Volume 10.2 fL (9.4-12.3); Monocytes Absolute Auto 0.9 X10*3/uL (0.1-1.2); Monocytes Percent Auto 12.3 % (2-11); Neutrophils Absolute Auto 3.9 x10*3/uL (2.0-8.3); Neutrophils Percent Auto 52.3 % (45-73); Platelet Count 313 X10*3/uL (160-400); Red Blood Count 4.08 X10*6/uL (4.20-5.50); Red Cell Distribution Width 12.9 % (11.0-16.0); White Blood Count 7.4 X10*3/uL (4.8-10.8)
[2023-05-20 12:02] LABS: Appearance Urine Clear; Color Urine Yellow; Glucose Urine UA Negative (Negative); Leukocyte Esterase Urine Negative (Negative); Nitrite Urine Negative (Negative); Specific Gravity - Urine 1.025 (1.005-1.025); Urine Blood Negative (Negative); Urine Ketones Negative (Negative); Urine Protein Negative (Neg-Trace)
[2023-05-20 12:06] LABS: Bacteria Urine Trace (None Seen); Hyaline Casts Urine 0-2 /LPF (0-2); RBC Urine 0-2 /HPF (0-2); WBC Urine 0-5 /HPF (0-5)
[2023-05-20 12:19] LABS: Alanine Aminotransferase 22 U/L (0-31); Albumin Level 3.9 g/dL (3.5-5.0); Alkaline Phosphatase 62 U/L (39-117); Anion Gap 13 (12-20); Aspartate Amino Transferase 26 U/L (5-31); Bilirubin Total 0.6 mg/dL (0.0-1.0); Blood Urea Nitrogen 18 mg/dL (9-16); Calcium 9.2 mg/dL (8.4-10.2); Carbon Dioxide 27 mmol/L (22-29); Chloride 110 mmol/L (96-108); Cholesterol 208 mg/dL (<200); Estimated Glomerular Filt Rate > 60; Glucose Fasting 123 mg/dL (60-99); HDL Cholesterol 63 mg/dL (>40); LDL Cholesterol Calculated 123 mg/dL (<100); Potassium 4.1 mmol/L (3.3-5.1); Sodium 146 mmol/L (135-145); Triglycerides 110 mg/dL (<150)
[2023-05-20 12:33] LABS: TSH reflex Free T4 1.93 uIU/mL (0.32-4.0)
== END 2023-05-20 11:32 | disposition home or self-care (01) ==
LOC: HO.LNP 11:31
PROVIDERS: Visit Provider Internal Medicine
DX: Z00.00 Encounter for general adult medical examination without abnormal findings (principal); E55.9 Vitamin D deficiency, unspecified; E78.00 Pure hypercholesterolemia, unspecified; E04.1 Nontoxic single thyroid nodule
CPT/HCPCS: 80053; 80061; 81001; 84443; 85025

== ENCOUNTER 2023-06-11 16:32 | Outpatient (REF) | payer MEDICARE, SELFPAY ==
--- NOTE | ~2023-06-11 | US_ITS ---
EXAMINATION: US THYROID CLINICAL INFORMATION: Morbid obesity. COMPARISON: Ultrasound soft tissue head/neck thyroid dated 04/02/2022 and 07/06/2021. TECHNIQUE: Linear transducer grayscale and color Doppler examination with attention to the region of the thyroid. FINDINGS: SIZE: Measurements of the thyroid lobes and nodules are given in sagittal, anteroposterior and transverse dimensions respectively. Right Thyroid Lobe: 4.2 x 2.0 x 1.4 cm, volume 6.3 mL. Previously 5.3 x 2.1 x 2.0 cm, volume 11.6 mL. Parenchyma: The gland echotexture is heterogeneous. Thyroid vascularity is normal. Left Thyroid Lobe: 4.1 x 1.4 x 1.5 cm, volume 4.6 mL. Previously 4.3 x 1.6 x 1.6 cm, volume 5.8 mL. Parenchyma: The gland echotexture is heterogeneous. Thyroid vascularity is normal. Isthmus: 0.3 cm in maximum AP dimension. Previously 0.6 cm. Estimated total number of nodules greater than or equal to 1 cm: 2. Facilities Maintenance Manager nodules are described as follows: 1. Location: Right mid. Size: 0.6 x 0.5 x 0.6 cm, volume 0.09 mL. Previously: 0.7 x 0.4 x 0.5 cm, volume 0.06 mL. Nodule characteristics: Composition: Solid/almost completely solid (2). Echogenicity: Hypoechoic (2). Shape: Not taller than wide (0). Margins: Ill-defined (0). Echogenic Foci: None (0). ACR TI-RADS total points: 4 ACR TI-RADS category: 4 Significant change in size (>/= 20% in 2 dimensions and minimal increase of 2 mm or 50% or greater increase in volume): No 2. Location: Right inferior. Size: 1.4 x 1.2 x 1.3 cm, volume 1.1 mL. Previously: 1.4 x 1.9 x 1.8 cm, volume 2.4 mL. This was previously sampled in 2022. Nodule characteristics: Composition: Solid/almost completely solid (2). Echogenicity: Isoechoic (1). Shape: Not taller than wide (0). Margins: Ill-defined (0). Echogenic Foci: None (0). ACR TI-RADS total points: 3 ACR TI-RADS category: 3 Significant change in size (>/= 20% in 2 dimensions and minimal increase of 2 mm or 50% or greater increase in volume): No 3. Location: Left superior. Size: 0.7 x 0.5 x 0.8 cm, volume 0.1 mL. Previously: 0.5 x 0.3 x 0.5 cm, volume 0.1 mL. Nodule characteristics: Composition: Spongiform (0). ACR TI-RADS total points: 0 Previous: 0 ACR TI-RADS category: 1 Previous: 1 Significant change in size (>/= 20% in 2 dimensions and minimal increase of 2 mm or 50% or greater increase in volume): No 4. Location: Left mid. Size: 0.2 x 0.2 x 0.4 cm, volume 0.008 mL. Previously: Not previously seen. Nodule characteristics: Composition: Mixed cystic and solid (1). Echogenicity: Hypoechoic (2). Shape: Not taller than wide (0). Margins: Ill-defined (0). Echogenic Foci: Peripheral calcifications (2). ACR TI-RADS total points: 5 ACR TI-RADS category: 4 5. Location: Left inferior. Size: 1.5 x 1.2 x 1.4 cm, volume 1.3 mL. Previously: 1.8 x 1.5 x 1.7 cm, volume 2.3 mL. Nodule characteristics: Composition: Solid (2). Echogenicity: Isoechoic (1). Shape: Not taller than wide (0). Margins: Ill-defined (0). Echogenic Foci: None (0). ACR TI-RADS total points: 3 ACR TI-RADS category: 3 Significant change in size (>/= 20% in 2 dimensions and minimal increase of 2 mm or 50% or greater increase in volume): No NODES: No lymphadenopathy is seen in the tissue surrounding the thyroid gland. US/US thyroid IMPRESSION: A 1.5 cm TR 3 left inferior thyroid nodule meets criteria for follow-up imaging in one year. Remainder of thyroid nodules as detailed above do not meet criteria for follow-up. ACR TI-RADS RECOMMENDATION REFERENCE: Ultrasound-guided fine-needle aspiration, follow up ultrasound, no further followup. * TR1 (0 point) and TR2 (2 points): No FNA or followup * TR3 (3 points): FNA if more than or equal to 2.5 cm in maximum dimension, follow up ultrasound in 1, 3 and 5 years if 1.5 to 2.4 cm in maximum dimension. * TR4 (4-6 points): FNA if more than or equal to 1.5 cm in maximum dimension, follow up ultrasound in 1, 2, 3 and 5 years if 1 to 1.4 cm in maximum dimension. * TR5 (more than or equal to 7 points): FNA if more than or equal to 1 cm in maximum dimension, follow up ultrasound every year for 5 years if 0.5 to 0.9 cm in maximum dimension. * TR3, TR4 or TR5 nodules that are below the size threshold for follow up receive no followup.
== END 2023-06-11 16:33 | disposition home or self-care (01) ==
LOC: HO.US 16:32
PROVIDERS: Visit Provider Internal Medicine
DX: E66.01 Morbid (severe) obesity due to excess calories (principal)
CPT/HCPCS: 76536

== ENCOUNTER 2024-01-15 10:54 | Outpatient (REF) | payer MEDICARE, SELFPAY ==
[2024-01-15 11:47] LABS: Vitamin D 25-OH Total 49.7 ng/mL (>30)
== END 2024-01-15 10:55 | disposition home or self-care (01) ==
LOC: HO.LNP 10:54
PROVIDERS: Visit Provider Internal Medicine
DX: E55.9 Vitamin D deficiency, unspecified (principal)
CPT/HCPCS: 82306

== ENCOUNTER 2024-05-25 16:30 | Outpatient (REF) | payer MEDICARE, SELFPAY | END 2024-05-25 16:31 | disposition home or self-care (01) | LOC: HO.US 16:30 | PROVIDERS: Absent Provider Internal Medicine Endocrinology, Diabetes & Metabolism; Visit Provider Internal Medicine | DX: E04.1 Nontoxic single thyroid nodule (principal) | CPT/HCPCS: 76536 ==

== ENCOUNTER → 2024-05-25 16:32 | Outpatient (BNV) | payer MEDICARE, SELFPAY | PROVIDERS: Absent Provider Internal Medicine Endocrinology, Diabetes & Metabolism; Visit Provider Radiology Diagnostic Radiology | DX: E04.1 Nontoxic single thyroid nodule (principal) | CPT/HCPCS: 76536 ==

== ENCOUNTER 2024-06-18 07:45 | Outpatient (REF) | payer MEDICARE, SELFPAY ==
[2024-06-18 10:50] LABS: MANUAL DIFF FLAG NO
[2024-06-18 11:18] LABS: Appearance Urine Clear; Color Urine Yellow; Glucose Urine UA Negative (Negative); Leukocyte Esterase Urine Negative (Negative); Nitrite Urine Negative (Negative); PH 5.5 (5.0-9.0); UMIC TRIGGER UACC YES; Urine Blood Trace (Negative); Urine Ketones Negative (Negative); Urine Protein Negative (Neg-Trace)
[2024-06-18 11:22] LABS: Bacteria Urine None Seen (None Seen); Basophils Absolute Auto 0.1 X10*3/uL (0.0-0.2); Basophils Percent Auto 1.3 % (0-2); Eosinophils Absolute Auto 0.3 X10*3/uL (0.0-0.4); Eosinophils Percent Auto 4.1 % (0-4); Hematocrit 45.5 % (37.0-47.0); Hemoglobin 14.4 g/dl (12.0-16.0); Hyaline Casts Urine 0-2 /LPF (0-2); Imm Gran Abs Auto 0.02 X10*3/uL (0.00-0.03); Imm Gran Pct Auto 0.2 % (0.0-0.4); Lymphocytes Absolute Auto 2.4 X10*3/uL (1.2-4.9); Mean Corpuscular HGB Conc 31.6 g/dl (31.0-35.0); Mean Corpuscular Hemoglobin 31.6 pg (27.0-33.0); Mean Platelet Volume 10.1 fL (9.4-12.3); Monocytes Percent Auto 11.6 % (2-11); Neutrophils Absolute Auto 4.4 x10*3/uL (2.0-8.3); Neutrophils Percent Auto 53.8 % (45-73); Platelet Count 349 X10*3/uL (160-400); RBC Urine 0-2 /HPF (0-2); Red Blood Count 4.55 X10*6/uL (4.20-5.50); Red Cell Distribution Width 12.8 % (11.0-16.0); WBC Urine 0-5 /HPF (0-5); White Blood Count 8.3 X10*3/uL (4.8-10.8)
[2024-06-18 11:51] LABS: Alanine Aminotransferase 12 U/L (0-31); Albumin Level 3.9 g/dL (3.5-5.0); Anion Gap 14 (12-20); Aspartate Amino Transferase 21 U/L (5-31); Bilirubin Total 0.7 mg/dL (0.0-1.0); Blood Urea Nitrogen 20 mg/dL (9-16); Calcium 9.3 mg/dL (8.4-10.2); Carbon Dioxide 27 mmol/L (22-29); Chloride 106 mmol/L (96-108); Cholesterol 225 mg/dL (<200); Estimated Glomerular Filt Rate > 60; Glucose Fasting 127 mg/dL (60-99); HDL Cholesterol 62 mg/dL (>40); LDL Cholesterol Calculated 135 mg/dL (<100); Sodium 143 mmol/L (135-145); Total Protein 7.7 g/dL (6.5-8.0); Triglycerides 140 mg/dL (<150)
--- OUTSIDE RECORDS SUMMARY | 2024-06-18 12:30 | XMS_ITS ---
Author Organization David Coon MD Address [address] [place] [phone] Care Team Providers Care Substation Electrician Supervisor Name Role Phone David Coon Primary Care Provider Allergies No Known Allergies REASON FOR VISIT Return to work note, tested positive for Covid 24 has been out of work x 2 weeks Medications Medication SIG (Take, Route, Frequency, Duration) Notes Start Date End Date Status Vitamin D3 50 MCG (1999 UT) 1 capsule Orally Once a day for 90 days 01/16/2024 Active Vitamin D 2000 UNIT 2 capsules Orally On day 04/16/2013 Not-Taking Vital Signs Blood pressure systolic 142 mm Hg 05/31/19 25 Blood pressure diastolic 88 mm Hg 025 Height 61.25 in 05/31/2024 Weight 247 lbs 05/31/2024 BMI 46.28 kg/m2 05/31/2024 weight is up 7 pounds since 01-05-24 Encounters Encounter Location Date Provider Diagnosis David Coon MD [address] [place], [place] [phone] 05/31/2024 David Coon COVID-19 U07.1 and Plantar fasciitis M72.2 Assessments Encounter Date Diagnosis (ICD Code) Assessment Notes Treatment Notes Treatment Clinical Notes Section Notes 05/31/2024 COVID-19 (ICD-10 - U07.1) has recovered and may return to work/ has recovered and has been out of work long enough according to guidelinesl 05/31/2024 Plantar fasciitis (ICD-10 - M72.2) gave exercisis/ gave her exercises and advised icing Plan Of Treatment Treatment Notes Assessment Notes COVID-19 has recovered and ma y return to work/ has recovered and has been out of work long enough according to guidelinesl Plantar fasciitis gave exercisis/ gave her exercises and advised icing Next Appt Details Provider Name:David Dumont ier, 06/24/2024 11:00:00 AM, [address], [address], [place], [place], [phone], Progress Notes * Taylor LEE RDOB:[birth year] (74 yo F)Acc No.[id number]:05/31/2024 Progress Notes Patient:?Lee, Taylor R Provider:?David Coon MD :1950???Age:74 Y???Sex:Female D ate:05/31/2024 Address:[address] [place] [id number] Subjective: * Chief Complaints: * ???Return to work notetested positive for Covid 05-14-24 has been out of work x 2 weeks * HPI: ???Symptom(s):? patient is a 74 yo female had covid 2 weeks ago. had been feeling ill until end of last week. still with a post nasal drip. still feeling a little difficulty breathing./ complaining of plantar fasciitis. using. * ROS:?General/Constitutional:?Denies?Chills.?Denies?Fatigue.?Denies?Fever.?Denies?Headache.?ENT:?Patient denies?decreased sense of smell , any loss of taste , sore throat.?Patient complaining of?c/o? post nasal drip.?Denies?Sore throat.?Respiratory:?Denies?Cough.?Denies?Shortness of breath at rest.?Denies?Shortness of breath with exertion.?Gastrointestinal:?Denies?Diarrhea.?Denies?Nausea.?Musculoskeletal:?Patient denies?muscle aches.?Peripheral Vascular:?Patient denies?red and blue toes.? * Medical History:? * Surgical History:? * Hospitalization/Major Diagno stic Procedure:? * Medications:?TakingVitamin D 3 50 MCG (2000 UT) Capsule 1 capsule Orally Once a dayTaking Vitamin D3 50 MCG (2000 UT) Capsule 1 capsule Orally Once a dayNot-Taking/PRNVitamin D 2000 UNIT Capsule 2 capsules Orally Once a dayNot-Taking/PRN Vitamin D 2000 UNIT Capsule 2 capsules Orally Once a day * Allergies:?N.K.D.A.yes[Aller gies Verified] Objective: * Vitals:?Ht: 61.25, Wt: 247, BMI:46.28, BP:142/88, Wt-k.04 weight is up 7 pounds since 01-05-24. * Examination: ???General Examination: ?GENERAL APPEARANCE:?well developed, well nourished.?HEAD:?normocephalic.?SKIN:?good turgor.?HEART:?regular rate and rhythm , no murmurs, rubs, gallops.?LUNGS:?no wheezes, rales, rhonchi , good air movement , clear to auscultation bilaterally.? Assessment: * Assessment: 1.?COVID-19 - U07.1 (Primary )?2.?Plantar fasciitis - M72.2? Plan: * Treatment: 2.?Plantar fasciitis? Notes: gave exercisis/ gave her exercises and advised icing?? * Procedure Codes:? * * Sign off status: Completed true * Provider:?David Coon MD Date:?0 05/31/2024 Generated for Magda alfaro/Anselmo/eTransmitting on:?06/18/2024 12:30 PM EST History and Physical Notes * HPI (History of Present Illness) Category Sub-Category Detail Notes Category Not es Symptom(s) patient is a 74 yo female had covid 2 weeks ago. had been feeling ill until end of last week. still with a post nasal drip. still feeling a little difficulty breathing./ complaining of plantar fasciitis. using Examination Category Sub-Category Detail Notes Category Not es General Examination GENERAL APPEARANCE: well developed , well nourished HEAD: normocephalic HEART: regular rate and rhy thm , no murmurs, rubs, gallops LUNGS: no wheezes, rales, r honchi , good air movement , clear to auscultation bilaterally SKIN: good turgor
--- OUTSIDE RECORDS SUMMARY | 2024-06-18 12:30 | XMS_ITS ---
Author Organization David Coon MD Address [address] [place] [phone] Care Team Providers Care Sawyer Helper Name Role Phone David Coon Primary Care Provider [phone] Results Component Value Reference Range Notes Complete Blood Count Auto Di ff (Not yet reviewed by provider) Interpretation: Performing Lab:[facility], [address] [place] [phone] Notes/Report: White Blood Count 8.3 4.8-10.8 X10*3/uL Red Blood Count 4.55 4.20-5.50 X10*6/uL Hemoglobin 14.4 12.0-16.0 g/dl Hematocrit 45.5 37.0-47.0 % Mean Corpuscular Volume 100.0 80.0-98.0 fL Mean Corpuscular Hemoglobin 31.6 27.0-33.0 pg Mean Corpuscular HGB Conc 31.6 31.0-35.0 g/dl Red Cell Distribution Width 12.8 11.0-16.0 % Platelet Count 349 160-400 X10*3/uL Mean Platelet Volume 10.1 9.4-12.3 fL Neutrophils Percent Auto 53.8 45-73 % Imm Gran Pct Auto 0.2 0.0-0.4 % Lymphocytes Percent Auto 29.0 20-40 % Monocytes Percent Auto 11.6 2-11 % Eosinophils Percent Auto 4.1 0-4 % Basophils Percent Auto 1.3 0-2 % NRBC Pct Auto 0.0 0.0-0.2 /100WBC Neutrophils Absolute Auto 4.4 2.0-8.3 x10*3/u L Imm Gran Abs Auto 0.02 0.00-0.03 X10*3/uL Lymphocytes Absolute Auto 2.4 1.2-4.9 X10*3/u L Monocytes Absolute Auto 1.0 0.1-1.2 X10*3/uL Eosinophils Absolute Auto 0.3 0.0-0.4 X10*3/u L Basophils Absolute Auto 0.1 0.0-0.2 X10*3/uL NRBC Abs Auto 0.000 0.0-0.012 X10*3/uL UA ClnCatch+Micro w/rflx Cul t (Not yet reviewed by provider) Interpretation: Performing Lab:[facility], [address] [place] [phone] Notes/Report: [id number] Urine, Clean Catch Color Urine Yellow Appearance Urine Clear PH 5.5 5.0-9.0 Glucose Urine UA Negative Negative mg/dL Urine Blood Trace Negative Specific [place] - Urine 1.020 1.005-1.025 Urine Protein Negative Neg-Trace mg/dL Urine Ketones Negative Negative mg/dL Nitrite Urine Negative Negative Leukocyte Esterase Urine Negative Negative RBC Urine 0-2 0-2 /HPF WBC Urine 0-5 0-5 /HPF Squamous Epithelial Cell Urine 6-10 0-2 /HPF Bacteria Urine None Seen None Seen Hyaline Casts Urine 0-2 0-2 /LPF REASON FOR VISIT yearly fasting labs Encounters Encounter Location Date Provider Diagnosis David Coon MD [address] [place], [place] [phone] 06/18/2024 David Coon Blood tests for ammy ine general physical examination Z00.00 ; Pure hypercholesterolemia E78.00 and Vitamin D deficiency E55.9 Assessments Encounter Date Diagnosis (ICD Code) Assessment Notes Treatment Notes Treatment Clinical Notes Section Notes 06/18/2024 Blood tests for ammy cristina general physical examination (ICD-10 - Z00.00) 06/18/2024 Pure hypercholesterolemia (ICD-10 - E78.00) 06/18/2024 Vitamin D deficiency (ICD-10 - E55.9) Plan Of Treatment Pending Test Test Name Order Date Complete Blood Count Auto Diff 5 Comprehensive [place]. Panel Fast 5 Lipid Panel 06/18/2024 Vitamin D 25-OH Total 06/18/2024 UA ClnCatch+Micro w/rflx Cult 06/18/2024 Next Appt Details Provider Name:David Dumont ier, 06/24/2024 11:00:00 AM, [address] [place] [address], [address], [place], [place], [phone], Progress Notes * Taylor LEE RDOB:[birth year] (74 yo F)Acc No.[id number]:06/18/2024 Progress Note Patient:?Taylor LEE R Provider:?David Coon MD :1950???Age:74 Y???Sex:Female D ate:06/18/2024 Address:[address] [place], [place] [phone] Subjective: * Chief Complaints: * ???1. Yearly fasting labs. * Medical History:? Objective: * Vitals:? Assessment: * Assessment: 1.?Blood tests for routine g eneral physical examination - Z00.00 (Primary)???2.?Pure hypercholesterolemia - E78.00???3.?Vitamin D deficiency - E55.9??? Plan: * Treatment: 2.?Pure hypercholesterolemia ?LAB: Complete Blood Count Auto Diff (Collection Date & Time - 06/18/2024 07:45 AM) ?LAB: Comprehensive [place]. Panel Fast ?LAB: Lipid Panel ?LAB: Vitamin D 25-OH Total ?LAB: UA ClnCatch+Micro w/rflx Cult (Collection Date & Time - 06/18/2024 07:45 AM) 3.?Vitamin D deficiency?LAB: Complete Blood Count Auto Diff (Collection Date & Time - 06/18/2024 07:45 AM) ?LAB: Comprehensive [place]. Panel Fast ?LAB: Lipid Panel ?LAB: Vitamin D 25-OH Total ?LAB: UA ClnCatch+Micro w/rflx Cult (Collection Date & Time - 06/18/2024 07:45 AM) * Procedure Codes:?01261 VENIP UNCT, ROUTINE* * * The named appointment provid er may or may not be the originator of this progress note, and it is not deemed complete until electronically signed by the appointment provider. Sign off status: Pending * Provider:?David Coon MD Date:?0 06/18/2024 Generated for Magda alfaro/Anselmo/Reneesmitting on:?06/18/2024 12:30 PM EST
--- OUTSIDE RECORDS SUMMARY | 2024-06-18 12:31 | XMS_ITS ---
Author Organization David Coon MD Address [address] [place] [phone] Care Team Providers Care Car Rental Deliverer Name Role Phone David Coon Primary Care Provider [phone] REASON FOR VISIT Thyroid US de Encounters Encounter Location Date Provider Diagnosis David Coon MD [address] [place] [phone] 06/03/2024 David oCon Thyroid nodule E04.1 Assessments Encounter Date Diagnosis (ICD Code) Assessment Notes Treatment Notes Treatment Clinical Notes Section Notes 06/03/2024 Thyroid nodule (ICD-10 - E04.1) order made and put intothe future order folder for Plan Of Treatment Treatment Notes Assessment Notes Thyroid nodule order made and put i ntothe future order folder for Pending Test Test Name Order Date US thyroid 06/03/2024 Next Appt Details Provider Name:David Dumont cecyr, 06/24/2024 11:00:00 AM, [address], [address], [place], [place], [phone], Progress Notes * Taylor LEE RDOB:[birth year] (74 yo F)Acc No.[id number]:06/03/2024 Patient:?Taylor Lee R :1950???Age:74 Y???Sex:Female Address: [address] , [place], [phone] Subjective: * Chief Complaints: * ???Thyroid US de * Medical History:? * Surgical History:? * Hospitalization/Major Diagno stic Procedure:? * Medications:? Objective: Assessment: * Assessment: 1.?Thyroid nodule - E04.1? Plan: * Treatment: Notes: order made and put intothe future order folder for ?? * Procedure Codes:? * true * Date:? Generated for Magda alfaro/Anselmo/eTransmitting on:?06/18/2024 12:30 PM EST
[2024-06-18 14:31] LABS: Alkaline Phosphatase 82 U/L (39-117)
== END 2024-06-18 07:46 | disposition home or self-care (01) ==
LOC: HO.LNP 07:45
PROVIDERS: Visit Provider Internal Medicine
DX: Z00.00 Encounter for general adult medical examination without abnormal findings (principal); E78.00 Pure hypercholesterolemia, unspecified; E55.9 Vitamin D deficiency, unspecified
CPT/HCPCS: 80053; 80061; 81001; 81003; 82306; 85025

== ENCOUNTER 2024-06-24 13:26 | Outpatient (REF) | payer MEDICARE, SELFPAY ==
[2024-06-24 13:41] LABS: Appearance Urine Clear; Color Urine Yellow; Glucose Urine UA Negative (Negative); Leukocyte Esterase Urine Negative (Negative); Nitrite Urine Negative (Negative); PH 5.5 (5.0-9.0); Urine Blood Negative (Negative); Urine Ketones Negative (Negative); Urine Protein Negative (Neg-Trace)
[2024-06-24 13:43] LABS: Bacteria Urine None Seen (None Seen); Hyaline Casts Urine 0-2 /LPF (0-2); RBC Urine 0-2 /HPF (0-2); WBC Urine 0-5 /HPF (0-5)
--- OUTSIDE RECORDS SUMMARY | 2024-06-24 17:21 | XMS_ITS ---
Author Organization David Coon MD Address [address] [place] [phone] Care Team Providers Care Polisher Brass Name Role Phone David Coon Primary Care Provider Results Component Value Reference Range Notes Complete Blood Count Auto Di ff Reviewed date:06/19/2024 12:37:53 PM Interpretation: Performing Lab:[facility], [address] [place] [phone] Notes/Report: White Blood Count 8.3 4.8-10.8 X10*3/uL [...] X10*3/uL NRBC Abs Auto 0.000 0.0-0.012 X10*3/uL Comprehensive [place]. Panel Fa st Reviewed date:06/19/2024 12:35:01 PM Interpretation: Performing Lab:[facility], [address] [place] [phone] Notes/Report: Sodium 143 135-145 mmol/L Potassium 4.0 3.3-5.1 mmol/L Chloride 106 96-108 mmol/L Carbon Dioxide 27 22-29 mmol/L Anion Gap 14 12-20 Blood Urea Nitrogen 20 9-16 mg/dL Creatinine 0.77 0.5-1.4 mg/dL Estimated Glomerular Filt Rate > 60 Chronic Kidney Disease: Estimated GFR < 60 mL/min/1.73m2 Severe Kidney Disease: Estimated GFR < 15 mL/min/1.73m2 Glucose Fasting 127 60-99 mg/dL A fasting glucose of 126 mg/dl or greater on more than one occasion is considered diagnostic of diabetes. Calcium 9.3 8.4-10.2 mg/dL Bilirubin Total 0.7 0.0-1.0 mg/dL Aspartate Amino Transferase 21 5-31 U/L Alanine Aminotransferase 12 0-31 U/L Total Protein 7.7 6.5-8.0 g/dL Albumin Level 3.9 3.5-5.0 g/dL Alkaline Phosphatase 82 39-117 U/L Lipid Panel Reviewed date:06/19/2024 12:29:55 PM Interpretation: Performing Lab:[address] [phone] Notes/Report: Triglycerides 140 <150 mg/dL Desirable Triglyceride: less than 150 mg/dL Borderline High Triglyceride 150-199 mg/dL High Triglyceride: 200-499 mg/dL Very High Triglyceride: greater than or equal to 5OO mg/dL Cholesterol 225 <200 mg/dL Desirable Cholesterol: less than 200 mg/dL Borderline High Cholesterol: 200-239 mg/dL High Cholesterol: greater than 239 mg/dL LDL Cholesterol Calculated 135 <100 mg/dL Desirable LDL: less than 100 mg/dL Near Optimal/Above Optimal LDL: 110-129 mg/dL Borderline High LDL: 130-159 mg/dL High LDL: 160-189 mg/dL Very High LDL: greater than or equal to 190 mg/dL HDL Cholesterol 62 >40 mg/dL Desirable HDL: greater than 40 mg/dL Note: This HDL assay may give artificially low results in patients with liver disease. Vitamin D 25-OH Total Reviewed date:06/19/2024 12:29:29 PM Interpretation: Performing Lab:[address] [phone] Notes/Report: Vitamin D 25-OH Total 47.0 >30 ng/mL Health Based Reference Values* < 20 ng/mL Deficient 20-30 ng/mL Insufficient > 30 ng/mL Sufficient *Rico ROB. N Engl J Med. 2007;357:266-280 Care must be taken in interpreting Vitamin D results from different laboratories and methodologies. Published data demonstrated that results from patients undergoing hemodialysis may show a negative bias when tested with various automated 25-OH vitamin D assays when compared to LC-MS/MS. When testing samples from patients whose predominant form of Vitamin D is Vitamin D2, such as patients receiving Vitamin D2 supplementation, results that are subtherapeutic should be confirmed with another method such as LC-MS/MS. ClnCatch+Micro w/rflx Cul t Reviewed date:06/21/2024 07:46:19 AM Interpretation: Performing Lab:[facility], [address] [place] [phone] Notes/Report: [id number] Urine, Clean Catch Color Urine Yellow Appearance Urine Clear PH 5.5 5.0-9.0 Glucose Urine UA Negative Negative mg/dL Urine Blood Trace Negative Specific [place] - Urine 1.020 1.005-1.025 Urine Protein Negative [...] Location Date Provider Diagnosis David Coon MD [address] [place] [address] [place] [phone] 06/18/2024 David Coon Blood tests for rout ine general physical examination Z00.00 ; Pure hypercholesterolemia E78.00 and Vitamin D deficiency E55.9 Assessments Encounter Date Diagnosis (ICD Code) Assessment Notes Treatment Notes Treatment Clinical Notes Section Notes 06/18/2024 Blood tests for rout ine general physical examination (ICD-10 - Z00.00) 06/18/2024 Pure hypercholesterolemia (ICD-10 - E78.00) 06/18/2024 Vitamin D deficiency (ICD-10 - E55.9) Plan Of Treatment Next Appt Details Provider Name:David heredia, 12/13/2024 11:00:00 AM, [address] [place] [address], [address], [phone], Provider Name:David heredia, 06/20/2025 07:45:00 AM, [address] [place] [address], [address], [phone], Provider Name:David heredia, 06/27/2025 10:30:00 AM, [address] [place] [address], [address], [phone], Progress Notes * Taylor LEE RDOB:[birth year] (74 yo F)Acc No.[id number]:06/18/2024 Progress Note Patient:?Taylor LEE Provider:?David Coon MD :1950???Age:74 Y???Sex:Female D ate:06/18/2024 Address:[address] [place] [address], [phone] Subjective: * Chief Complaints: * ???1. Yearly fasting labs. * Medical History:? Objective: * Vitals:? Assessment: * Assessment: 1.?Blood tests for routine g eneral physical examination - Z00.00 (Primary)???2.?Pure hypercholesterolemia - E78.00???3.?Vitamin D deficiency - E55.9??? Plan: * Treatment: 2.?Pure hypercholesterolemia ?LAB: Complete Blood Count Auto Diff (Collection Date & Time - 06/18/2024 07:45 AM) ?LAB: Comprehensive [place]. Panel Fast (Collection Date & Time - 06/18/2024 07:45 AM) ?LAB: Lipid Panel (Collection Date & Time - 06/18/2024 07:45 AM) ?LAB: Vitamin D 25-OH Total (Collection Date & Time - 06/18/2024 07:45 AM) ?LAB: UA ClnCatch+Micro w/rflx Cult (Collection Date & Time - 06/18/2024 07:45 AM) 3.?Vitamin D deficiency?LAB: Complete Blood Count Auto Diff (Collection Date & Time - 06/18/2024 07:45 AM) ?LAB: Comprehensive [place]. Panel Fast (Collection Date & Time - 06/18/2024 07:45 AM) ?LAB: Lipid Panel (Collection Date & Time - 06/18/2024 07:45 AM) ?LAB: Vitamin D 25-OH Total (Collection Date & Time - 06/18/2024 07:45 AM) ?LAB: UA ClnCatch+Micro w/rflx Cult (Collection Date & Time - 06/18/2024 07:45 AM) * Procedure Codes:?06087 VENIP UNCT, ROUTINE* * * The named appointment provid er may or may not be the originator of this progress note, and it is not deemed complete until electronically signed by the appointment provider. Sign off status: Pending * Provider:?David Coon MD Date:?0 06/18/2024 Generated for Magda alfaro/Anselmo/Eliotitting on:?06/24/2024 05:21 PM EST
--- OUTSIDE RECORDS SUMMARY | 2024-06-24 17:22 | XMS_ITS ---
Author Organization David Coon MD Address [address] [place] [phone] Care Team Providers Care Dyeing Machine Feeder Name Role Phone David Coon Primary Care Provider [phone] Allergies No Known Allergies Results Component Value Reference Range Notes Occult Blood, Stool, Guaiac Reviewed date:06/24/2024 02:11:16 PM Interpretation:Negative Performing Lab: Notes/Report: Negative Occult Blood, Stool, Guaiac Neg UA ClnCatch+Micro w/rflx Cul t Reviewed date:06/24/2024 04:39:03 PM Interpretation: Performing Lab:[facility], [address] [place] [phone] Notes/Report: [id number] Urine, Clean Catch Color Urine Yellow Appearance Urine Clear PH 5.5 5.0-9.0 Glucose Urine UA Negative Negative mg/dL Urine Blood Negative Negative Specific [place] - Urine 1.020 1.005-1.025 Urine Protein Negative Neg-Trace mg/dL Urine Ketones Negative Negative mg/dL Nitrite Urine Negative Negative Leukocyte Esterase Urine Negative Negative RBC Urine 0-2 0-2 /HPF WBC Urine 0-5 0-5 /HPF Squamous Epithelial Cell Urine 3-5 0-2 /HPF Bacteria Urine None Seen None Seen Hyaline Casts Urine 0-2 0-2 /LPF REASON FOR VISIT annual visit, Repeat U/A, A1C is 6.1 Medications Medication SIG (Take, Route, Frequency, Duration) Notes Start Date End Date Status Vitamin D 2000 UNIT 2 capsules Orally On a day 04/16/2013 Not-Taking Vitamin D3 50 MCG (1999 UT) 1 capsule Orally Once a day for 90 days 01/16/2024 Active Social History Tobacco Use: Social History Observation Description Date Details (start date - stop date) Never Smoker NA - NA Tobacco Use/Smoking Question Answer Notes Patient is a nonsmoker Additional Findings: Tobacco Non-User Cu rrent non-smoker, currently using no form of tobacco Alcohol Screen Question Answer Notes Did you have a drink contain ing alcohol in the past year? Yes How often did you have a dri nk containing alcohol in the past year? Monthly or less (1 point) How many drinks did you have on a typical day when you were drinking in the past year? 1 or 2 drinks (0 point) How often did you have 6 or more drinks on one occasion in the past year? Never (0 point) Points 1 Interpretation Negative Vital Signs Blood pressure systolic 154 mm Hg 06/24/19 25 Blood pressure diastolic 72 mm Hg 025 Height 61.25 in 06/24/2024 Weight 245 lbs 06/24/2024 BMI 45.91 kg/m2 06/24/2024 Encounters Encounter Location Date Provider Diagnosis David Coon MD [address] [place], [place] [phone] 06/24/2024 David Coon Hematuria R31.9 ; An nual physical exam Z00.00 ; Pure hypercholesterolemia E78.00 ; Vitamin D deficiency E55.9 ; Colon cancer screening Z12.11 and Depression screening Z13.31 Assessments Encounter Date Diagnosis (ICD Code) Assessment Notes Treatment Notes Treatment Clinical Notes Section Notes 06/24/2024 Hematuria (ICD-10 - R31.9) pending lab 06/24/2024 Annual physical exam (ICD-10 - Z00.00) labs reviewed and discussed with patient 06/24/2024 Pure hypercholesterolemia (ICD-10 - E78.00) stable, advised on diet, will continue to monitor 06/24/2024 Vitamin D deficiency (ICD-10 - E55.9) stable, will cpntinue current regiment 06/24/2024 Colon cancer screeni ng (ICD-10 - Z12.11) guaiac negative 06/24/2024 Depression screening (ICD-10 - Z13.31) negative screen Plan Of Treatment Treatment Notes Assessment Notes Hematuria pending lab Annual physical exam labs reviewed and d iscussed with patient Pure hypercholesterolemia stable, advise d on diet, will continue to monitor Vitamin D deficiency stable, will cpntin ue current regiment Colon cancer screening guaiac negative Depression screening negative screen Next Appt Details Follow Up: 6 Months, Reason: Provider Name:David heredia, 12/13/2024 11:00:00 AM, [address] [place] [address], [address] [place] [address], [phone], Provider Name:David heredia, 06/20/2025 07:45:00 AM, [address] [place] [address], Suite [facility], [place], [phone], Provider Name:David heredia, 06/27/2025 10:30:00 AM, [address] [place] [address], [address] [place] [address], [phone], Progress Notes * Taylor LEE RDOB:[birth year] (74 yo F)Acc No.[id number]:06/24/2024 Progress Notes Patient:?LEETaylor Provider:?David Coon MD :1950???Age:74 Y???Sex:Female D ate:06/24/2024 Address: [address] [place], [id number] Subjective: * Chief Complaints: * ???1. Annual visit. 2. Repea t U/A. 3. A1C is 6.1. * HPI: ???Depression Screening:?PHQ-9?Little interest or pleasure in doing things?Not at all,?Feeling down, depressed, or hopeless?Not at all,?Trouble falling or staying asleep, or sleeping too much?Not at all,?Feeling tired or having little energy?Not at all,?Poor appetite or overeating?Not at all,?Feeling bad about yourself or that you are a failure, or have let yourself or your family down?Not at all,?Trouble concentrating on things, such as reading the newspaper or watching television?Not at all,?Moving or speaking so slowly that other people could have noticed; or the opposite, being so fidgety or restless that you have been moving around a lot more than usual?Not at all,?Thoughts that you would be better off or of hurting yourself in some way?Not at all,?Total Score?0.?Interpretation and Intervention?Depression Screening Findings?Negative,?Follow-Up for Depression?: review of PHQ-9 found negative result, no follow-up needed.?Communication Needs:?Communication Needs?Does the patient have a hearing impairment?No,?Does the patient have a vision impairment??Yes,?If yes, what is the vision impairment??Glasses,?Does the patient have a cognition impairment??No.?Fall Risk:?History?Have you had any falls with injury in the past year??No,?Have you had two or more falls in the past year??No.?SDOH Questions:?SDOH Questions?In the past year have you been worried about losing housing??No,?In the past year have you or any family members you live with been unable to get any of the following when it was really needed? Check all that apply:?None.?Symptom(s):? patient is a 74 yo female here for annual visit with review of labs and follow up of chronic issues. * ROS:?General/Constitutional:?Patient denies?fatigue, headache.?Change in appetite?denies.?Chills?denies.?Fever?denies.?Ophthalmologic:?Blurred vision?denies.?Discharge?denies.?Pain?denies.?ENT:?Patient denies?decreased sense of smell, any loss of taste, sore throat.?Decreased hearing?denies.?Sore throat?denies.?Swollen glands?denies.?Endocrine:?Cold intolerance?denies.?Excessive thirst?denies.?Heat intolerance?denies.?Weight loss?denies.?Respiratory:?Cough?denies.?Shortness of breath at rest?denies.?Shortness of breath with exertion?denies.?Wheezing?denies.?Cardiovascular:?Chest pain at rest?denies.?Chest pain with exertion?denies.?Irregular heartbeat?denies.?Shortness of breath?denies.?Gastrointestinal:?Abdominal pain?denies.?Change in bowel habits?denies.?Diarrhea?denies.?Nausea?denies.?Rectal bleeding?denies.?Vomiting?denies .?Genitourinary:?Blood in urine?denies.?Difficulty urinating?denies.?Frequent urination?denies.?Urinary incontinence?Denies.?Musculoskeletal:?Patient denies?muscle aches.?Painful joints?denies.?Weakness?denies.?Peripheral Vascular:?Patient denies?red and blue toes.?Skin:?Dry skin?denies.?Itching?denies.?Denies?Mole(s),? changes in moles, new moles or any lesions of concern.?Denies?Photosensitivity.?Rash?denies.?Neurologic:?Dizziness?denies.?Fainting?denies.?Headache?denies.? * Medical History:?Colonoscopy 03/16/2010 due in 10 years; 2021 colonoscopy, Pap smear 04/05/16, Lung nodule evaluated 2019 and no further followup needed, Lung nodule, Right middle lobe pulmonary nodule, Right middle lobe pulmonary nodule. * Family History:?Father: dece ased 90 yrs, COPD.?Mother: 83 yrs, breast cancer.?1 sister(s) . 1 daughter(s) . .? Father COPD Mother breast cancer, Denies mental health/substance abuse family history daughter substance abuse father alcoholic, Denies mental health/substance abuse family history. * Social History:?Tobacco Use:?Tobacco Use/Smoking?Patient is a?nonsmoker,?Additional Findings: Tobacco Non-User?Current non-smoker, currently using no form of tobacco.?Drugs/Alcohol:?Alcohol Screen?Did you have a drink containing alcohol in the past year??Yes,?How often did you have a drink containing alcohol in the past year??Monthly or less (1 point),?How many drinks did you have on a typical day when you were drinking in the past year??1 or 2 drinks (0 point),?How often did you have 6 or more drinks on one occasion in the past year??Never (0 point),?Points?1,?Interpretation?Negative.?Miscellaneous:?Caffeine: yes, frequency:, 2-3 cups per day. Children: yes. Community involvements: yes. Exercise: no. Housing: owning. Living with: family. Marital status: single. Occupation: works full-time. Pets: cats: dogs:. Travel outside of the [place]: no. * Medications:?Taking Vitamin D3 50 MCG (2000 UT) Capsule 1 capsule Orally Once a day , Not-Taking/PRN Vitamin D 2000 UNIT Capsule 2 capsules Orally Once a day , Medication List reviewed and reconciled with the patient * Allergies:?N.K.D.A. Objective: * Vitals:?Ht: 61.25, Wt: 245, BMI:45.91, BP:154/72, Repeat BP:120/76, Wt-k.13. * ???Past Orders: ???Lab:Vitamin D 25-OH Total (Order Date - 06/18/2024) (Collection Date & Time - 06/18/2024 07:45 AM) ? Value Reference Range ?Vitamin D 25-OH Total 47.0 >30 - ng/mL ???Lab:UA ClnCatch+Micro w/r flx Cult (Order Date - 06/18/2024) (Collection Date & Time - 06/18/2024 07:45 AM) ? Value Reference Range ?Color Urine Yellow - ?Appearance Urine Clear - ?PH 5.5 5.0-9.0 - ?Glucose Urine UA Negative Neg ative - mg/dL ?Urine Blood Trace A Negative - ?Specific [place] - Urine 1.020 1.005-1.025 - ?Urine Protein Negative Neg-Tr michelle - mg/dL ?Urine Ketones Negative Negati ve - mg/dL ?Nitrite Urine Negative Negati ve - ?Leukocyte Esterase Urine Negative Negative - ?RBC Urine 0-2 0-2 - /HPF ?WBC Urine 0-5 0-5 - /HPF ?Squamous Epithelial Cell Urine 6-10 0-2 - /HPF ?Bacteria Urine None Seen None Seen - ?Hyaline Casts Urine 0-2 0-2 - /LPF ???Lab:Complete Blood Count Auto Diff (Order Date - 06/18/2024) (Collection Date & Time - 06/18/2024 07:45 AM) ? Value Reference Range ?White Blood Count 8.3 4. 8-10.8 - X10*3/uL ?Red Blood Count 4.55 4.20 -5.50 - X10*6/uL ?Hemoglobin 14.4 12.0-16.0 - g/dl ?Hematocrit 45.5 37.0-47.0 - % ?Mean Corpuscular Volume 100.0 H 80.0-98.0 - fL ?Mean Corpuscular Hemoglobin 31.6 27.0-33.0 - pg ?Mean Corpuscular HGB Conc 31.6 31.0-35.0 - g/dl ?Red Cell Distribution Width 12.8 11.0-16.0 - % ?Platelet Count 349 160-4 00 - X10*3/uL ?Mean Platelet Volume 10.1 9.4-12.3 - fL ?Neutrophils Percent Auto 53.8 45-73 - % ?Imm Gran Pct Auto 0.2 0. 0-0.4 - % ?Lymphocytes Percent Auto 29.0 20-40 - % ?Monocytes Percent Auto 11.6 H 2-11 - % ?Eosinophils Percent Auto 4.1 H 0-4 - % ?Basophils Percent Auto 1.3 0-2 - % ?NRBC Pct Auto 0.0 0.0-0. 2 - /100WBC ?Neutrophils Absolute Auto 4.4 2.0-8.3 - x10*3/uL ?Imm Gran Abs Auto 0.02 0. 00-0.03 - X10*3/uL ?Lymphocytes Absolute Auto 2.4 1.2-4.9 - X10*3/uL ?Monocytes Absolute Auto 1.0 0.1-1.2 - X10*3/uL ?Eosinophils Absolute Auto 0.3 0.0-0.4 - X10*3/uL ?Basophils Absolute Auto 0.1 0.0-0.2 - X10*3/uL ?NRBC Abs Auto 0.000 0.0-0. 012 - X10*3/uL ???Lab:Comprehensive [place]. P clive Fast (Order Date - 06/18/2024) (Collection Date & Time - 06/18/2024 07:45 AM) ? Value Reference Range ?Sodium 143 135-145 - mmo l/L ?Bilirubin Total 0.7 0.0- 1.0 - mg/dL ?Aspartate Amino Transferase 21 5-31 - U/L ?Alanine Aminotransferase 12 0-31 - U/L ?Total Protein 7.7 6.5-8. 0 - g/dL ?Albumin Level 3.9 3.5-5. 0 - g/dL ?Alkaline Phosphatase 82 39-117 - U/L ?Potassium 4.0 3.3-5.1 - mmol/L ?Chloride 106 96-108 - mm ol/L ?Carbon Dioxide 27 22-29 - mmol/L ?Anion Gap 14 12-20 - ?Blood Urea Nitrogen 20 H 9-16 - mg/dL ?Creatinine 0.77 0.5-1.4 - mg/dL ?Estimated Glomerular Filt Rate > 60 - ?Glucose Fasting 127 H 60-9 9 - mg/dL ?Calcium 9.3 8.4-10.2 - m g/dL ???Lab:Lipid Panel (Order Da te - 06/18/2024) (Collection Date & Time - 06/18/2024 07:45 AM) ? Value Reference Range ?Triglycerides 140 <150 - mg/dL ?Cholesterol 225 H <200 - m g/dL ?LDL Cholesterol Calculated 135 H <100 - mg/dL ?HDL Cholesterol 62 >40 - mg/dL * Examination: ???General Examination: ?GENERAL APPEARANCE:?well developed, well nourished, in no acute distress.?HEAD:?normocephalic, atraumatic.?EYES:?pupils equal, round, reactive to light and accommodation, sclera non-icteric.?EARS:?normal.?ORAL CAVITY:?mucosa moist.?THROAT:?clear.?NECK/THYROID:?neck supple, full range of motion, no cervical lymphadenopathy, no bruits.?SKIN:?warm and dry, no suspicious lesions.?HEART:?regular rate and rhythm, S1, S2 normal, no murmurs.?LUNGS:?clear to auscultation bilaterally.?BREASTS:?No mass, no lump.?ABDOMEN:?soft, nontender, nondistended, bowel sounds present, normal, no organomegaly , no masses palpable.?RECTAL EXAM:?no masses palpable, stool guaiac negative.?FEMALE GENITOURINARY:?not done.?EXTREMITIES:?no clubbing, cyanosis, or edema.?NEUROLOGIC:?nonfocal, motor strength normal upper and lower extremities, sensory exam intact.? Assessment: * Assessment: 1.?Annual physical exam - Z0 0.00 (Primary)???2.?Hematuria - R31.9???3.?Pure hypercholesterolemia - E78.00???4.?Vitamin D deficiency - E55.9???5.?Colon cancer screening - Z12.11???6.?Depression screening - Z13.31??? Plan: * Treatment: 2.?Hematuria?LAB: [facility] ClClarissaatch+Micro w/rflx Cult (Collection Date & Time - 06/24/2024 11:00 AM) Notes: pending lab?? 3.?Pure hypercholesterolemia ? Notes: stable, advised on diet, will continue to monitor?? 4.?Vitamin D deficiency? Notes: stable, will cpntinue current regiment?? 5.?Colon cancer screening?LAB: Occult Blood, Stool, Guaiac (Collection Date & Time - 06/24/2024)?Negative ? Value Reference Range ?Occult Blood, Stool, Guaiac Neg Notes: guaiac negative??6.?Depression screening? Notes: negative screen?? * Procedure Codes:?19663 TEST FOR BLOOD, FECES * Follow Up:?6 Months * * The named appointment provid er may or may not be the originator of this progress note, and it is not deemed complete until electronically signed by the appointment provider. Sign off status: Pending * Provider:?David Coon MD Date:?0 06/24/2024 Generated for Magda alfaro/Anselmo/Eliotitting on:?06/24/2024 05:21 PM EST History and Physical Notes * HPI (History of Present Illness) Category Sub-Category Detail Notes Category Not es Symptom(s) patient is a 74 yo female here for annual visit with review of labs and follow up of chronic issues. Depression Screening PHQ-9 Little inte rest or pleasure in doing things: Not at all Feeling down, depressed, or hopeless: No t at all Trouble falling or staying asleep, or sl eeping too much: Not at all Feeling tired or having little energy: N ot at all Poor appetite or overeating: Not at all Feeling bad about yourself o r that you are a failure, or have let yourself or your family down: Not at all Trouble concentrating on thi ngs, such as reading the newspaper or watching television: Not at all Moving or speaking so slowly that other people could have noticed; or the opposite, being so fidgety or restless that you have been moving around a lot more than usual: Not at all Thoughts that you would be b pierre off or of hurting yourself in some way: Not at all Total Score: 0 Interpretation and Intervention Depression Scree reta Findings: Negative Follow-Up for Depression: : review of PH Q-9 found negative result, no follow-up needed SDOH Questions SDOH Questions In the past year have you been worried about losing housing?: No In the past year have you or any family members you live with been unable to get any of the following when it was really needed? Check all that apply:: None Fall Risk History Have you had any falls with injury i n the past year?: No Have you had two or more falls in the year?: No Communication Needs Communication Needs Does the patient have a hearing impairment: No Does the patient have a vision impairmen t?: Yes ?If yes, what is the vision impairment?: Glasses Does the patient have a cognition impair ment?: No Examination Category Sub-Category Detail Notes Category Not es General Examination GENERAL APPEARANCE: well dev eloped, well nourished, in no acute distress HEAD: normocephalic, atrau matic EYES: pupils equal, round, reactive to light and accommodation, sclera non- icteric EARS: normal THROAT: clear NECK/THYROID: neck supple, full ra nge of motion, no cervical lymphadenopathy, no bruits HEART: regular rate and rhy thm, S1, S2 normal, no murmurs LUNGS: clear to auscultatio n bilaterally ABDOMEN: soft, nontender, non distended, bowel sounds present, normal, no organomegaly , no masses palpable NEUROLOGIC: nonfocal, motor stre ngth normal upper and lower extremities, sensory exam intact SKIN: warm and dry, no quiana picious lesions EXTREMITIES: no clubbing, cyanosi s, or edema BREASTS: No mass, no lump RECTAL EXAM: no masses palpable, stool guaiac negative FEMALE GENITOURINARY: not done ORAL CAVITY: mucosa moist
--- OUTSIDE RECORDS SUMMARY | 2024-06-24 17:22 | XMS_ITS ---
Author Organization David Coon MD Address [address] [place] [phone] Care Team Providers Care Plant Taxonomist Name Role Phone David Coon Primary Care Provider [phone] REASON FOR VISIT Thyroid US de Encounters Encounter Location Date Provider Diagnosis David Coon MD [address] [place] [phone] 06/03/2024 David Coon Thyroid nodule E04.1 Assessments Encounter Date Diagnosis [...] 06/03/2024 Next Appt Details Provider Name:David Dumont ier, 12/13/2024 11:00:00 AM, [address], [address], [place], [phone], Provider Name:David Dumont ier, 06/20/2025 07:45:00 AM, [address], [address], [place], [phone], Provider Name:David Dumont ier, 06/27/2025 10:30:00 AM, [address], [address], [place], [phone], Progress Notes * Taylor LEE RDOB:[birth year] (74 yo F)Acc No.[id number]:06/03/2024 Patient:?Taylor Lee R :1950???Age:74 Y???Sex:Female Address:[address] [place] [address], [place], [address] Subjective: * Chief Complaints: * ???Thyroid US de * Medical History:? * Surgical History:? * Hospitalization/Major Diagno stic Procedure:? * Medications:? Objective: Assessment: * Assessment: 1.?Thyroid nodule - E04.1? Plan: * Treatment: Notes: order made and put intothe future order folder for ?? * Procedure Codes:? * true * Date:? Generated for Magda alfaro/Anselmo/eTransmitting on:?06/24/2024 05:22 PM EST
== END 2024-06-24 13:27 | disposition home or self-care (01) ==
LOC: HO.LNP 13:26
PROVIDERS: Visit Provider Internal Medicine
DX: R31.9 Hematuria, unspecified (principal)
CPT/HCPCS: 81001

== ENCOUNTER → 2024-08-12 08:45 | Outpatient (BNV) | payer MEDICARE, SELFPAY | PROVIDERS: PCP Internal Medicine; Visit Provider Radiology Diagnostic Radiology | DX: E28.39 Other primary ovarian failure (principal) | CPT/HCPCS: 77080 ==

== ENCOUNTER 2024-08-12 08:47 | Outpatient (REF) | payer MEDICARE, SELFPAY ==
--- NOTE | ~2024-08-12 | MM_ITS ---
EXAMINATION: DXA BONE DENSITY AXIAL HISTORY: Estrogen deficiency TECHNIQUE: Dovo Dual energy absorptiometry (DEXA) of the lumbar spine, total left hip, and femoral neck was performed. COMPARISON: Comparison is made with the prior examination dated 07/02/2022. FINDINGS: The bone mineral density of the lumbar spine is 1.024 with a T-score of -1.2, and a Z-score of -0.6. This is indicative of osteopenia. This represents a BMD change of -2.3% compared to the prior exam. This is not statistically significant. The bone mineral density of the left total hip is 0.773 with a T-score of -1.9, and a Z-score of -0.9. This is indicative of osteopenia. This represents a BMD change of -2.9% compared to the prior exam. This is not statistically significant. The bone mineral density of the left femoral neck is 0.650 with a T-score of -2.8, and a Z-score of -1.6. This is indicative of osteoporosis. This represents a BMD change of -8.6% compared to the prior exam. MM/XR DEXA axial skeleton IMPRESSION: Based on bone mineral density, and according to World Health Organization (WHO) criteria, the diagnosis is consistent with osteoporosis. All bone density values are in grams per centimeter squared (g/cm2). Statistically, 68% of repeat scans fall within 1 SD (+/- 0.010 g/cm2 for AP spine L1-L4) and 1 SD (+/- 0.012 g/cm2 for femur total) FRAX is a trademark of the [employer] [place] for Metabolic Bone Disease, a World Health Organization (WHO) Collaborating Center. Electronically signed by: Braxton Stephens MD 08/12/2024 09:41 AM EDT
--- OUTSIDE RECORDS SUMMARY | 2024-08-12 09:13 | XMS_ITS ---
Author Organization David Coon MD Address [address] [place] [phone] Care Team Providers Care Salvage Inspector [employer] Name Role Phone David Coon Primary Care Provider Results Component Value Reference Range Notes Complete Blood Count Auto Di ff Reviewed date:06/19/2024 12:37:53 PM Interpretation: Performing Lab:[facility], [address] [place] [phone] Notes/Report: White Blood Count 8.3 4.8-10.8 X10*3/uL [...] NRBC Abs Auto 0.000 0.0-0.012 X10*3/uL Comprehensive [place]. Panel Fa st Reviewed date:06/19/2024 12:35:01 PM Interpretation: Performing Lab:[facility], [address] [place] [phone] Notes/Report: Sodium 143 135-145 mmol/L Potassium 4.0 [...] Panel Reviewed date:06/19/2024 12:29:55 PM Interpretation: Performing Lab:[address] [phone] Notes/Report: Triglycerides 140 <150 mg/dL Desirable Triglyceride: [...] Total Reviewed date:06/19/2024 12:29:29 PM Interpretation: Performing Lab:[address] [phone] Notes/Report: Vitamin D 25-OH Total 47.0 >30 [...] t Reviewed date:06/21/2024 07:46:19 AM Interpretation: Performing Lab:[facility], [address] [place] [phone] Notes/Report: [id number] Urine, Clean Catch Color Urine Yellow Appearance Urine Clear PH 5.5 5.0-9.0 Glucose Urine UA Negative Negative mg/dL Urine Blood Trace Negative Specific [place] - Urine 1.020 1.005-1.025 Urine Protein Negative [...] Location Date Provider Diagnosis David Coon MD [address] [place] [address] [place] [phone] 06/18/2024 David Coon Blood tests for rout [...] Details Provider Name:David heredia, 12/13/2024 11:00:00 AM, [address] [place] [address], [address], [phone], Provider Name:David heredia, 06/20/2025 07:45:00 AM, [address] [place] [address], [address], [phone], Provider Name:David heredia, 06/27/2025 10:30:00 AM, [address] [place] [address], [address], [phone], Progress Notes * Taylor LEE RDOB:[birth year] (74 yo F)Acc No.[id number]:06/18/2024 Progress Note Patient:?Taylor LEE Provider:?David Coon MD :1950???Age:74 Y???Sex:Female D ate:06/18/2024 Address:[address] [place] [address], [phone] Subjective: * Chief Complaints: * ???1. Yearly fasting labs. * Medical History:? Objective: * Vitals:? Assessment: * Assessment: 1.?Blood tests for routine g eneral physical examination - Z00.00 (Primary)???2.?Pure hypercholesterolemia - E78.00???3.?Vitamin D deficiency - E55.9??? Plan: * Treatment: 2.?Pure hypercholesterolemia ?LAB: Complete Blood Count Auto Diff (Collection Date & Time - 06/18/2024 07:45 AM) ?LAB: Comprehensive [place]. Panel Fast (Collection Date & Time - [...] Time - 06/18/2024 07:45 AM) ?LAB: Comprehensive [place]. Panel Fast (Collection Date & Time - 06/18/2024 07:45 AM) ?LAB: Lipid Panel (Collection Date & Time - 06/18/2024 07:45 AM) ?LAB: Vitamin D 25-OH Total (Collection Date & Time - 06/18/2024 07:45 AM) ?LAB: UA ClnCatch+Micro w/rflx Cult (Collection Date & Time - 06/18/2024 07:45 AM) * Procedure Codes:?33939 VENIP UNCT, ROUTINE* * * The named appointment provid er may or may not be the originator of this progress note, and it is not deemed complete until electronically signed by the appointment provider. Sign off status: Pending * Provider:?David Coon MD Date:?0 06/18/2024 Generated for Magda alfaro/Anselmo/Eliotitting on:?08/12/2024 09:12 AM EDT
--- OUTSIDE RECORDS SUMMARY | 2024-08-12 09:13 | XMS_ITS ---
Author Organization David Coon MD Address [address] [place] [phone] Care Team Providers Care Tax Examining Technician Name Role Phone David Coon Primary Care Provider REASON FOR VISIT Thyroid US de Encounters Encounter Location Date Provider Diagnosis David Coon MD [address] [place] [phone] 06/03/2024 David Coon Thyroid nodule E04.1 Assessments [...] 11:00:00 AM, [address], [address], [place], [place], [phone], Provider Name:David samr, 06/20/2025 07:45:00 AM, [address], [address], [place], [phone], Provider Name:David Dumont ier, 06/27/2025 10:30:00 AM, [address], [address], [place], [phone], Progress Notes * Taylor LEE RDOB:[birth year] (74 yo F)Acc No.[id number]:06/03/2024 Patient:?Taylor Lee R :1950???Age:74 Y???Sex:Female Address:[address] [place] [address], [place], [address] Subjective: * Chief Complaints: * ???Thyroid US de * Medical History:? * Surgical History:? * Hospitalization/Major Diagno stic Procedure:? * Medications:? Objective: Assessment: * Assessment: 1.?Thyroid nodule - E04.1? Plan: * Treatment: Notes: order made and put intothe future order folder for ?? * Procedure Codes:? * true * Date:? Generated for Magda alfaro/Anselmo/eTransmitting on:?08/12/2024 09:13 AM EDT
--- OUTSIDE RECORDS SUMMARY | 2024-08-12 09:13 | XMS_ITS ---
Author Organization David Coon MD Address [address] [place] [phone] Care Team Providers Care Health Unit Supervisor Name Role Phone David Coon Primary Care Provider Allergies No Known Allergies Results Component Value Reference Range Notes Occult Blood, Stool, Guaiac Reviewed date:06/24/2024 02:11:16 PM Interpretation:Negative Performing Lab: Notes/Report: Negative Occult Blood, Stool, Guaiac Neg UA ClnCatch+Micro w/rflx Cul t Reviewed date:06/24/2024 04:39:03 PM Interpretation: Performing Lab:[facility], [address] [place] [id number] Notes/Report: [id number] Urine, Clean Catch Color Urine Yellow Appearance Urine Clear PH 5.5 5.0-9.0 Glucose Urine UA Negative Negative mg/dL Urine Blood Negative Negative Specific [place] - Urine 1.020 1.005-1.025 Urine Protein Negative [...] Date Provider Diagnosis David Coon MD [address] [place], [place] [phone] 06/24/2024 David Coon Hematuria R31.9 ; An [...] Reason: Provider Name:David heredia, 12/13/2024 11:00:00 AM, [address] [place] [address], [address] [place] [address], [phone], Provider Name:David samr, 06/20/2025 07:45:00 AM, [address] [place] [address], Suite [facility], [place], [phone], Provider Name:David heredia, 06/27/2025 10:30:00 AM, [address] [place] [address], [address] [place] [address], [phone], Progress Notes * Taylor LEE RDOB:[birth year] (74 yo F)Acc No.[id number]:06/24/2024 Progress Notes Patient:?LEETaylor Provider:?David Coon MD :1950???Age:74 Y???Sex:Female D ate:06/24/2024 Address: [address] [id number] Subjective: * Chief Complaints: * ???Annual visitRepeat U/AA1C is 6.1 * HPI: ???Depression Screening:?PHQ-9?Little interest or pleasure [...] or any lesions of concern.?Denies?Photosensitivity.?Rash?denies.?Neurologic:?Dizziness?denies.?Fainting?denies.?Headache?denies.? * Medical History:? * Surgical History:? * Hospitalization/Major Diagno stic Procedure:? * Family History:?Father: dece ased 90 yrs, [...] outside of the [place]: no. * Medications:?TakingVitamin D 3 50 MCG (2000 UT) Capsule 1 capsule Orally Once a day Taking Vitamin D3 50 MCG (2000 UT) Capsule 1 capsule Orally Once a day Not-Taking/PRNVitamin D 2000 UNIT Capsule 2 capsules Orally Once a day Medication List reviewed and reconciled with the patientNot-Taking/PRN Vitamin D 2000 UNIT Capsule 2 capsules Orally Once a day Medication List reviewed and reconciled with the patient * Allergies:?N.K.D.A.yes[Josee keane Verified] Objective: * Vitals:?Ht: 61.25, Wt: 245, BMI:45.91, [...] ?Urine Blood Trace A Negative - ?Specific [place] - Urine 1.020 1.005-1.025 - ?Urine Protein [...] Auto 0.000 0.0-0. 012 - X10*3/uL ???Lab:[facility]. P clive Fast (Order Date - 06/18/2024) [...] - Z13.31??? Plan: * Treatment: 2.?Hematuria?LAB: [facility] ClClarisasatch+Micro w/rflx Cult (Collection Date & Time - [...] negative??6.?Depression screening? Notes: negative screen?? * Procedure Codes:?18991 TEST FOR BLOOD, FECES * Follow Up:?6 Months * * Sign off status: Completed true * Provider:?David Coon MD Date:?0 06/24/2024 Generated for Magda alfaro/Anselmo/Reneesmitting on:?08/12/2024 09:12 AM EDT History and Physical Notes * HPI (History [...] Total Score: 0 Interpretation and Intervention Depression Jeanee reta Findings: Negative Follow-Up for Depression: : [...]
== END 2024-08-12 08:48 | disposition home or self-care (01) ==
LOC: HO.MAMMO 08:47
PROVIDERS: PCP Internal Medicine; Visit Provider Nurse Practitioner Adult Health
DX: Z13.820 Encounter for screening for osteoporosis (principal); Z78.0 Asymptomatic menopausal state
CPT/HCPCS: 77080